=== PATIENT | female | born 1985 | race Caucasian/White ===

== ENCOUNTER 2021-05-20 09:05 | Inpatient (IN) ==
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
[2021-05-20 10:17] LABS: Basophils # (auto) 0.02 K/uL (0-0.2); Basophils % (auto) 0.3 %; Eosinophils # (auto) 0.09 K/uL (0-0.5); Eosinophils % (auto) 1.3 %; Hematocrit (blood only) 36.6 % (37-47); Hemoglobin 11.9 g/dL (12.0-16.0); Immature Granulocytes # (auto) 0.01 K/uL (0.00-0.02); Immature Granulocytes % (auto) 0.1 %; Lymphocytes # (auto) 1.71 K/uL (1.2-3.4); Lymphocytes % (auto) 24.8 %; Mean Corpuscular Hemoglobin 29.6 pg (25-34); Mean Corpuscular Hgb Conc 32.5 g/dL (32-36); Mean Platelet Volume 10.1 fL (7.4-10.4); Monocytes # (auto) 0.43 K/uL (0.11-0.59); Monocytes % (auto) 6.2 %; Neutrophils # (auto) 4.64 K/uL (1.4-6.5); Neutrophils % (auto) 67.3 %; Platelet Count 285 K/uL (130-400); RDW Coefficient of Variation 13.3 % (11.5-14.5); RDW Standard Deviation 44.1 fL (36.4-46.3); Red Blood Count 4.02 M/uL (4.2-5.4)
[2021-05-20 10:33] LABS: BUN Creatinine Ratio 31.8 (10-20); Blood Urea Nitrogen 14 mg/dl (7-18); C Reactive Protein 4.24 mg/dl (0-0.29); Calcium 8.7 mg/dl (8.5-10.1); Carbon Dioxide 22 mmol/L (21-32); Chloride 115 mmol/L (98-107); Creatinine Clr Calc Pharmacy 205.4 ml/min; Est GFR (African American) > 150.0 ml/min; Est GFR (Non-African American) 129.9 ml/min; Glucose 90 mg/dl (70-99); Potassium 3.5 mmol/L (3.5-5.1); Sodium 143 mmol/L (136-145)
--- NOTE | 2021-05-20 11:02 | XRay Report ---
XR foot RT min 3V routine HISTORY: 36 years-old Female right foot infection mid lateral bottom acute pain and swelling of the right foot COMPARISON: None TECHNIQUE: 3 views of the right foot FINDINGS: Demineralized appearance of the bones. Mild joint space narrowing of the first MTP joint. Moderate di ffuse soft tissue prominence. There is a 2.1 x 2.8 cm soft tissue ulcer of the plantar lateral midfoo t/forefoot junction. Packing material with deep tissue air is noted within this distribution. Osseous erosion with cortical destruction involves the plantar and lateral aspect of the fifth metatarsal ba se measuring up to approximately 10 mm in length. IMPRESSION: Soft tissue ulcer of the plantar and lateral forefoot/midfoot junction with acute osteomy elitis involving the adjacent base of the fifth metatarsal. ACT 112: Negative or not required by law. The above report was generated using voice recognition software. It may contain grammatical, syntax o r spelling errors. Electronically signed by: Rod Mueller M.D. 05/20/2021 11:01 AM
[2021-05-20] MEDS ORDERED: PIPERACILL/TAZOBAC CONSULT ACTIVE PRN ×2 (11:10→21:09)
[2021-05-20] MEDS ORDERED: PIPERACILLIN/TAZOBACTAM 4.5 GM/120 ML BAG IV ONE (11:10)
[2021-05-20] MEDS ORDERED: DAPTOmycin 450 MG in SYRINGE 0 ML IV ONE (11:10)
--- NOTE | 2021-05-20 12:54 | History & Physical Report ---
Date of Service May 20, 2021 Assessment & Plan (1) Acute osteomyelitis: Plan: Necrotic unstageable pressure ulcer on right foot with underlying osteomyelitis ESR 86, CRP 4.24 Consult orthopedics - discussed with Dr Gallagher No surrounding cellulitis and not septic therefore hold off further antibiotics pending surgery decision. If no surgery planned will continue daptomycin and Zosyn pending blood and wound cultures. (2) Chronic paraplegia: Plan: On no specific medication for this (3) Migraines: Plan: Continue Topamax 50mg PO HS (4) Osteoarthritis of wrists, bilateral: Plan: Meloxicam 15mg PO daily (she notably also receives steroid injections every 2 months for this) Plan: VTE Prophylaxis - deferred pending surgical decision Diet - NPO pending surgical decision Dispositon - admit to med/surg Admission and Anticipated Discharge Date Admission Date: May 20, 2021 History of Present Illness Chief Complaint: Right foot ulcer Primary Care Provider: Arabella Frost PA-C Salma Chambers is a 36 year old female with lower extremity paraplegia who presents to the ER with right foot ulcer. She reports this has been ongoing for the last month. However, since jignesh COVID-19 at the beginning of this month she had increasing problems caring for the wound it it got progressively worse with more oozing and increasing in size. Because she was on isolation she was only seen by a physician last for it and was started on doxycycline. She comes in today as the oozing has stopped but it has now become necrotic and black. She denies any fever or chills. Regarding her COVID-19 diagnosis she initially had symptoms on April 28 but diagnosed positive at [facility] on May 03. She received no medications for COVID. She reports a mild cough ongoing but otherwise asymptomatic. She denies any history of OK or strokes. She has no feeling below. Last ate waffle around 8am, orange juice a couple of minutes ago. In the ER foot XR showed underlying osteomyelitis. She was treated with Daptomycin and Zosyn and referred to medicine for admission and ongoing management of this. Allergies Allergy/AdvReac Type Severity Reaction Status Date / Time sulfamethoxazole Allergy Nausea Unverified 05/20/21 11:31 [From Bactrim] trimethoprim [From Bactrim] Allergy Nausea Unverified 05/20/21 11:31 bacitracin [From Polysporin] AdvReac Hives Unverified 05/20/21 11:31 latex AdvReac Rash Unverified 05/20/21 11:31 polymyxin B [From Polysporin] AdvReac Hives Unverified 05/20/21 11:31 Home Medications Medication Instructions Recorded Confirmed Type acetylcysteine 600 mg capsule (NAC) 600 mg PO HS 05/20/21 05/20/21 History doxycycline hyclate 100 mg tablet 100 mg PO BID 05/20/21 05/20/21 History levonorgestrel-ethinyl estradiol 1 tab PO HS 05/20/21 05/20/21 History 0.1 mg-20 mcg tablet loratadine 10 mg tablet 10 mg PO HS 05/20/21 05/20/21 History meloxicam 15 mg tablet 15 mg PO DIRECTED PRN 05/20/21 05/20/21 History rizatriptan 10 mg tablet 10 mg PO HS PRN 05/20/21 05/20/21 History topiramate 50 mg tablet 50 mg PO HS 05/20/21 05/20/21 History zinc 50 mg tablet 30 mg PO HS 05/20/21 05/20/21 History Past Med/Surg History Medical History Chronic paraplegia Migraines Osteoarthritis of wrists, bilateral Surgical History History of back surgery 1993 after sledding accident History of wisdom tooth extraction Social History Smoking Status: Never smoker Hx Alcohol Use: Yes Hx Substance Use: No Preferred Language: Mohawk Communication Ability: Effective Cafeteria Attendant Required: No Beliefs That Will Affect Care: Synagogue Synagogue Beliefs: Uatsdin Current Living Situation: Spouse Other Information That Helps Us Care for You: No Feels Safe at Home: Yes Safety Concerns: Feels Safe At This Time Assistive Devices: Walker Review of Systems Review of Systems: All systems reviewed & are unremarkable except as noted in HPI & below Physical Exam Constitutional: WD/WN, vitals as above Eyes: + anicteric sclerae; normal pupil size ENMT: external ear and nose normal, oropharynx normal Respiratory: normal respiratory effort, lungs clear to auscultation Cardiovascular: RRR, no murmur, no edema Gastrointestinal (Abdomen): Inspection/Auscultation: normal bowel sounds Percussion/Palpation: abdomen soft; abdomen nontender, no guarding and abdomen not rigid Musculoskeletal: No movement of lower extremities Skin: + eschar (necrotic right plantar foot ulcer, no purelence, no surrounding cellulitis) Neurologic: awake; + does not move all extremities (no lower extremity movement) and not confused Psychiatric: A+Ox3, euthymic affect Results & Data Results & Data ([facility]) Vital Signs (Past 12 Hours) Vital Signs Temp Pulse Pulse Resp BP BP Pulse Ox 05/20/21 12:00 89 18 145/97 H 100 05/20/21 10:28 83 18 147/96 H 100 05/20/21 09:13 36.6 C 99 H 18 153/86 H 100 Laboratory Results Abnormal lab results 05/20/21 05/20/21 05/20/21 Range/Units 10:03 10:03 10:03 RBC 4.02 L (4.2-5.4) M/uL Hgb 11.9 L (12.0-16.0) g/dL Hct 36.6 L (37-47) % ESR 86 H (0-20) mm/hr Chloride 115 H (98-107) mmol/L Creatinine 0.44 L (0.6-1.2) mg/dl BUN/Creatinine Ratio 31.8 H (10-20) C-Reactive Protein 4.24 H (0-0.29) mg/dl Diagnostic Findings XR foot RT min 3V routine HISTORY: 36 years-old Female right foot infection mid lateral bottom acute pain and swelling of the right foot COMPARISON: None TECHNIQUE: 3 views of the right foot FINDINGS: Demineralized appearance of the bones. Mild joint space narrowing of the first MTP joint. Moderate diffuse soft tissue prominence. There is a 2.1 x 2.8 cm soft tissue ulcer of the plantar lateral midfoot/forefoot junction. Packing material with deep tissue air is noted within this distribution. Osseous erosion with cortical destruction involves the plantar and lateral aspect of the fifth metatarsal base measuring up to approximately 10 mm in length. IMPRESSION: Soft tissue ulcer of the plantar and lateral forefoot/midfoot junction with acute osteomyelitis involving the adjacent base of the fifth metatarsal. Medications Administered ER Medications Given: Zosyn 4.5 g IV Daptomycin 450mg IV Code Status & VTE Plan Code Status Full VTE Prophylaxis Plan VTE Prophylaxis will be ordered: Yes PG Care Time/CCT Total # of Minutes Spent Total Time Spent with Patient: Total time spent is greater than 50% in coordination of care (as documented) at patient's floor/unit and/or counseling patient: Coding Level of Care Code 61558 Initial Inpt Care Lvl 3 Diagnoses Chronic paraplegia G82.20 Migraines G43.909 Osteoarthritis of wrists, bilateral M19.031; M19.032 Acute osteomyelitis M86.10
[2021-05-20] MEDS ORDERED: ACETAMINOPHEN 325 MG TAB PO PRN (16:36)
[2021-05-20] MEDS ORDERED: RIZATRIPTAN BENZOATE 10 MG TAB PO PRN (16:36)
[2021-05-20] MEDS ORDERED: ONDANSETRON INJ 2 MG/ML 2 ML VIAL IV PRN (16:36)
[2021-05-20] MEDS ORDERED: POLYETHYLENE (MIRALAX) 17 GM PACK PO PRN (16:36)
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
[2021-05-20] MEDS: BIRTH CONTROL PO SCH (20:40)
[2021-05-20] MEDS: MELOXICAM 7.5 MG TAB PO SCH (20:40)
[2021-05-20] MEDS: ZINC SULFATE 220 MG CAPSULE PO SCH (20:41)
[2021-05-20] MEDS: LORATADINE 10 MG TAB PO SCH (20:41)
[2021-05-20] MEDS: TOPIRAMATE 50 MG TAB PO SCH (20:41)
[2021-05-20] MEDS: PIPERACILLIN/TAZOBACTAM 4.5 GM in DEXTROSE 5% 100 ML IV SCH (22:00)
[2021-05-21] MEDS: PIPERACILLIN/TAZOBACTAM 4.5 GM in DEXTROSE 5% 100 ML IV SCH ×3 (06:41→21:56)
[2021-05-21] MEDS: DAPTOmycin 450 MG in SYRINGE 0 ML IV SCH (12:48)
--- NOTE | 2021-05-21 15:23 | Procedure Note ---
Procedure Note Date of Service May 21, 2021 Note Patient identified and procedure explained: bedside sharp debridement and irrigation of necrotic right foot wound. Written consent obtained. Time out was called prior to procedure. Myself, pt's bedside nurse and wound care nurses pres ent. Pt's also present for procedure. Wound was inspected, the superficial wound was completely necrotic with dusky necrotic wound edges at the 11, 4-6 o'clock positions. The overlying necrotic tissue was sharply debrided with 11 scalpel blade. Once the superficial layer of necrotic tissue was removed there was exposed tendon. Tendon appeared to be decent integrity and perfusion so this was not debrided or transected. Deeper tissues were then debrided at the 3,4,5,6, and 9 o'clock positions. After deep debridement there was good blood flow to the underlying tissues. Wound edges that appeared dusky at the 11 and 4- 6 o'clock positions were sharply debrided until viable tissue with good blood flow was exposed. There were no deep pockets of pus or foul smelling drainage so no additional cultures of the wound were obtained. After sharp debridement of superficial and deep tissues, the entire wound bed showed good viable tissue with good blood flow. The wound bed was then scored thoroughly with a size 5 curette. The wound bed was then irrigated with 70 mL of sterile saline. Hemostasis was achieved with direct pressure held with 4 x 4 gauze by nursing staff. Wound care nursing staff then dressed the wound. Pt tolerated the procedure well with no complications. No local anesthetic was used d/t baseline paraplegia and lack of sensation. EBL 10 mL. Coding CPT Codes Skin and Soft Tissue - Skin and Soft Tissue: 94031 Debridement, subcutaneous tissue, first 20 sq cm ([id number]) [facility] Procedure Codes (Charges) Indication for Procedure Indication for procedure: Necrotic foot wound with concomitant osteomyelitis. Skin and Soft Tissue Skin and Soft Tissue: 69091 Debridement, subcutaneous tissue, first 20 sq cm
[2021-05-21] MEDS: ADVANCED PROBIOTIC 1250 MG CAPSULE PO SCH (16:58)
--- NOTE | 2021-05-21 17:32 | Hospitalist Progress Note ---
Date of Service May 21, 2021 Assessment & Plan (1) Acute osteomyelitis: Plan: - Necrotic unstageable pressure ulcer on right foot with underlying osteomyelitis - XR - soft tissue ulcer of the plantar and lateral forefoot/midfoot junction with acute osteomyelitis involve the adjacent base of the 5th metatarsal - Wound Cx and BCx - NGTD - ESR 86, CRP 4.24 - Dapto/Zosyn for now - will discuss with ID pending Cx - suggesting IV Abx for at least 3 weeks - Consult orthopedics - S/P debridement on 05/21 -- Recommend podiatry establishment - shoe fitting/offloading approaches - ID - continue current Abx - will [place] as cx may not reveal much -- Weekly CRP; Will likely need 3 weeks IV Abx at least then conversion to orals for total 6 weeks (2) Chronic paraplegia: Plan: - On no specific medication for this (3) Migraines: Plan: - Continue Topamax 50mg PO HS (4) Osteoarthritis of wrists, bilateral: Plan: - Meloxicam 15mg PO daily - (she notably also receives steroid injections every 2 months for this) Plan: - Await Cx - will re-engage ID if unable to show growth - Case management following for IV Abx needs Admission and Anticipated Discharge Date Admission Date: May 20, 2021 Subjective Patient underwent debridement this afternoon and tolerating well. ID consultation placed and completed. She reports no pain at the wound site due to paraplegia. She reports feeling well overall, no fever/chills. She is having some loose stool which has been ongoing since having COVID. No respiratory symptoms. Review of Systems Review of Systems: All systems reviewed & are unremarkable except as noted in Subjective Physical Exam Physical Exam: PHYSICAL EXAM General Appearance: WDWN in NAD who is A&O x 3 HEENT: Head is normocephalic/atraumatic; Hearing grossly intact Neck: Supple; Trachea midline; Neg JVD Extremities: R plantar aspect wound with necrotic center but no current drainage Neurological: Speech clear Psychiatric: Appropriate mood/affect Results & Data Results & Data ([facility]) Vital Signs (Past 12 Hours) Vital Signs Temp Pulse Resp BP Pulse Ox 05/21/21 14:27 37.2 C 90 16 104/70 100 05/21/21 07:20 36.7 C 90 16 107/67 100 PG Care Time/CCT Total # of Minutes Spent Total Time Spent with Patient: Total time spent is greater than 50% in coordination of care (as documented) at patient's floor/unit and/or counseling patient: Coding Level of Care Code 45012 Subseq Hosp Care Lvl 3 Diagnoses Acute osteomyelitis M86.10 Chronic paraplegia G82.20 Migraines G43.909 Osteoarthritis of wrists, bilateral M19.031; M19.032
[2021-05-21] MEDS: LORATADINE 10 MG TAB PO SCH (20:26)
[2021-05-21] MEDS: MELOXICAM 7.5 MG TAB PO SCH (20:26)
[2021-05-21] MEDS: BIRTH CONTROL PO SCH (20:27)
[2021-05-21] MEDS: ZINC SULFATE 220 MG CAPSULE PO SCH (20:27)
[2021-05-21] MEDS: TOPIRAMATE 50 MG TAB PO SCH (20:27)
[2021-05-22] MEDS: PIPERACILLIN/TAZOBACTAM 4.5 GM in DEXTROSE 5% 100 ML IV SCH ×3 (06:32→18:08)
[2021-05-22] MEDS: ADVANCED PROBIOTIC 1250 MG CAPSULE PO SCH (07:22)
[2021-05-22] MEDS: LOPERAMIDE HCL 2 MG CAP PO PRN ×4 (11:16→21:30)
[2021-05-22] MEDS: DAPTOmycin 450 MG in SYRINGE 0 ML IV SCH (12:04)
--- NOTE | 2021-05-22 19:38 | Hospitalist Progress Note ---
Date of Service May 22, 2021 Assessment & Plan (1) Acute osteomyelitis: Plan: - Necrotic unstageable pressure ulcer on right foot with underlying osteomyelitis - XR - soft tissue ulcer of the plantar and lateral forefoot/midfoot junction with acute osteomyelitis involve the adjacent base of the 5th metatarsal - Wound Cx and BCx - NGTD - ESR 86, CRP 4.24 - Dapto/Zosyn for now - message sent to ID provider - suggesting IV Abx for at least 3 weeks - Consult orthopedics - S/P debridement on 05/21 -- Recommend podiatry establishment - shoe fitting/offloading approaches - ID - continue current Abx - awaiting response from message left -- Weekly CRP; Will likely need 3 weeks IV Abx at least then conversion to orals for total 6 weeks (2) Chronic paraplegia: Plan: - On no specific medication for this (3) Migraines: Plan: - Continue Topamax 50mg PO HS (4) Osteoarthritis of wrists, bilateral: Plan: - Meloxicam 15mg PO daily - (she notably also receives steroid injections every 2 months for this) Plan: - Awaiting ID recommendations; Awaiting home agency for wound vac/Abx - when arranged hopefully can get her home tomorrow or next day pending logistics - Case management following for IV Abx needs Admission and Anticipated Discharge Date Admission Date: May 20, 2021 Subjective Reports feeling well today. Has an irrigating wound vac placed and tolerating. Remains afebrile and vitals stable. Review of Systems Review of Systems: All systems reviewed & are unremarkable except as noted in Subjective Physical Exam Physical Exam: PHYSICAL EXAM General Appearance: WDWN in NAD who is A&O x 3 HEENT: Head is normocephalic/atraumatic; Hearing grossly intact Neck: Supple; Trachea midline; Neg JVD Extremities:Wound vac placed to R plantar aspect of foot Neurological: Speech clear Psychiatric: Appropriate mood/affect Results & Data Results & Data ([facility]) Vital Signs (Past 12 Hours) Vital Signs Temp Pulse Resp BP Pulse Ox 05/22/21 15:24 36.9 C 85 16 124/82 98 05/22/21 07:38 36.6 C 83 16 114/75 100 PG Care Time/CCT Total # of Minutes Spent Total Time Spent with Patient: Total time spent is greater than 50% in coordination of care (as documented) at patient's floor/unit and/or counseling patient: Coding Level of Care Code 38902 Subseq Hosp Care Lvl 3 Diagnoses Acute osteomyelitis M86.10 Chronic paraplegia G82.20 Migraines G43.909 Osteoarthritis of wrists, bilateral M19.031; M19.032
[2021-05-22] MEDS: BIRTH CONTROL PO SCH (21:23)
[2021-05-22] MEDS: TOPIRAMATE 50 MG TAB PO SCH (21:25)
[2021-05-22] MEDS: MELOXICAM 7.5 MG TAB PO SCH (21:25)
[2021-05-22] MEDS: LORATADINE 10 MG TAB PO SCH (21:28)
[2021-05-22] MEDS: ZINC SULFATE 220 MG CAPSULE PO SCH (21:31)
[2021-05-23] MEDS: PIPERACILLIN/TAZOBACTAM 4.5 GM in DEXTROSE 5% 100 ML IV SCH (02:07)
[2021-05-23] MEDS: LOPERAMIDE HCL 2 MG CAP PO PRN ×4 (02:07→14:40)
[2021-05-23] MEDS: ADVANCED PROBIOTIC 1250 MG CAPSULE PO SCH (08:19)
[2021-05-23] MEDS ORDERED: cefTRIAXone SODIUM 2,000 MG in DEXTROSE 5% 50 ML IV SCH (09:45)
[2021-05-23 12:09] LABS: Creatinine Clr Calc Pharmacy 122.1 ml/min; Est GFR (African American) 120.8 ml/min; Est GFR (Non-African American) 104.2 ml/min
[2021-05-23] MEDS ORDERED: DAPTOmycin 300 MG in SYRINGE 0 ML IV SCH (13:00)
--- NOTE | 2021-05-23 18:03 | Discharge Summary ---
Date of Service May 23, 2021 Admission HPI Per Admitting Provider Salma Chambers is a 36 year old female with lower extremity paraplegia who presents to the ER with right foot ulcer. She reports this has been ongoing for the last month. However, since jignesh COVID-19 at the beginning of this month she had increasing problems caring for the wound it it got progressively worse with more oozing and increasing in size. Because she was on isolation she was only seen by a physician last for it and was started on doxycycline. She comes in today as the oozing has stopped but it has now become necrotic and black. She denies any fever or chills. Regarding her COVID-19 diagnosis she initially had symptoms on April 28 but diagnosed positive at [facility] on May 03. She received no medications for COVID. She reports a mild cough ongoing but otherwise asymptomatic. She denies any history of MN or strokes. She has no feeling below. Last ate waffle around 8am, orange juice a couple of minutes ago. In the ER foot XR showed underlying osteomyelitis. She was treated with Daptomycin and Zosyn and referred to medicine for admission and ongoing management of this. Principal Diagnosis Acute 5th Metatarsal Base Osteomyelitis; Open Wound of R Plantar Foot Discharge Exam PHYSICAL EXAM General Appearance: WDWN in NAD who is A&O x 3 HEENT: Head is normocephalic/atraumatic; Hearing grossly intact Neck: Supple; Trachea midline; Neg JVD Extremities:Wound vac placed to R plantar aspect of foot Neurological: Speech clear Psychiatric: Appropriate mood/affect Discharge Data Allergies Allergy/AdvReac Type Severity Reaction Status Date / Time sulfamethoxazole Allergy Nausea Unverified 05/20/21 11:31 [From Bactrim] trimethoprim [From Bactrim] Allergy Nausea Unverified 05/20/21 11:31 bacitracin [From Polysporin] AdvReac Hives Unverified 05/20/21 11:31 latex AdvReac Rash Unverified 05/20/21 11:31 polymyxin B [From Polysporin] AdvReac Hives Unverified 05/20/21 11:31 Consultations 05/20/21 12:14 Consult Orthopedic Surgery Stat 05/20/21 12:17 ED Decision to Admit Stat 05/20/21 21:11 Consult Infectious Diseases Routine Ordered Studies Foot X-Ray 05/20/21 09:37 XR foot RT min 3V routine HISTORY: 36 years-old Female right foot infection mid lateral bottom acute pain and swelling of the right foot COMPARISON: None TECHNIQUE: 3 views of the right foot FINDINGS: Demineralized appearance of the bones. Mild joint space narrowing of the first MTP joint. Moderate diffuse soft tissue prominence. There is a 2.1 x 2.8 cm soft tissue ulcer of the plantar lateral midfoot/forefoot junction. Packing material with deep tissue air is noted within this distribution. Osseous erosion with c ortical destruction involves the plantar and lateral aspect of the fifth metatarsal base measuring up to approximately 10 mm in length. IMPRESSION: Soft tissue ulcer of the plantar and lateral forefoot/midfoot junction with acute osteomyelitis involving the adjacent base of the fifth metatarsal. ACT 112: Negative or not required by law. The above report was generated using voice recognition software. It may contain grammatical, syntax or spelling errors. Electronically signed by: Rod Mueller M.D. 05/20/2021 11:01 AM Hospital Course (1) Acute osteomyelitis: - Necrotic unstageable pressure ulcer on right foot with underlying osteomyelitis - XR - soft tissue ulcer of the plantar and lateral forefoot/midfoot junction with acute osteomyelitis involve the adjacent base of the 5th metatarsal - Wound Cx and BCx - NGTD - ESR 86, CRP 4.24 - Dapto/Zosyn while hospitalized - message sent to ID provider - suggesting IV Abx for at least 3 weeks -- After further review discussed with ID - plan for Rocephin alone for now as she has been asymptomatic -- Recommends monitoring clinical course and CRP for response - if seems to fail treatment then recommend stopping Abx x 2 weeks for a bone sample -- If good clinical response then recommend changing to Augmentin 500 mg TID starting on day 21 - Orthopedics - S/P debridement on 05/21 -- Recommend podiatry establishment - shoe fitting/offloading approaches - ID - continue current Abx - awaiting response from message left -- Weekly CRP; Will likely need 3 weeks IV Abx at least then conversion to orals for total 6 weeks (2) Chronic paraplegia: - On no specific medication for this (3) Migraines: - Continue Topamax 50mg PO HS (4) Osteoarthritis of wrists, bilateral: - Meloxicam 15mg PO daily - (she notably also receives steroid injections every 2 months for this) - Home Abx arranged; U/S guided peripheral line placed Home Health Attestation I certify that this patient is under my care and that I, or a physicians speech correction assistant working with me, had a face to-face encounter that meets the home health nheg-ca-robq encounter requirements with this patient. The encounter with the patient was in whole, or in part, for the following medical condition, which is the primary reason for home health care (list medical condition): I certify that, based on my findings, the following services are medically necessary home health services: My clinical findings support the need for the above services because: Caregiver Instruct Med Mgmt, Safety, Disease Process, Signs to Report Medication Compliance and Monitoring Effective of New Medications Medication Compliance Skilled Nsg Assessment Skilled Nsg Assessment Surgical Incision / Wound Skilled Nsg Assess and Instruct on Diet Skilled Nsg Instruction New Medications Skilled Nsg to Assess, Perform and Teach Wound Care Vital Signs Weekly Labs Further, I certify that my clinical findings support that this patient is homebound (i.e. absences from home require considerable and taxing effort and are for medical reasons or [employer] services or infrequently or of short duration when for other reasons) because: Supportive Aid - Wheelchair Certification for Home Health Services: Based on the above findings, I certify that this patient is confined to the home and needs intermittent half-way care, physical therapy and/or speech therapy or continues to need occupational therapy. The patient is under my care, and I have initiated the establishment of the plan of care. This patient will be followed by a physician who will periodically review the plan of care. Total Time Total Time Spent Total Time Spent (In Minutes): Spent greater than 30 minutes preparing patient for discharge. This includes discussion with patient/family, assessment, intervention, medication reconciliation, and coordination of care. Discharge Plan Discharge Items Patient Disposition: Home - Home Health Services Reason For Visit: ACUTE OSTEOMYELITIS Discharge Diagnosis: Acute Osteomyelitis (Bone Infection) Activity: Resume your previous activity Non-emergency contact: Primary Care Provider Call non-emergency contact if: you have any medication questions, your symptoms worsen and you have a fever Follow-up/Referrals: Arabella Frost PA-C [Primary Care Provider] - 06/05/21 8:20 am Diet: Regular Addtl Attending Provider Instructions: Acute Osteomyelitis (Bone Infection): - You were admitted for a pressure ulcer on the right foot that had some necrotic () tissue. This was debrided down to good healthy tissue. - Your X-ray does show some infection in the base of the 5th metatarsal (baby toe) - Due to the bone involvement we will treat with longer course of antibiotics -- You will be on Ceftriaxone (Rocephin) 2 gram IV daily for 3 weeks. Recommend a follow-up foot x-ray in 2 weeks which can be arranged with your family doctor. You will also need to have weekly CRP (this is a blood test to look for inflammation). If this continues to reduce that is a sign the antibiotics are working. If there is a concern for worsening findings or the CRP keeps elevating, Dr. Flores from infectious disease at [facility] recommends coming off antibiotics for two weeks and getting a bone sample to better determine antibiotics. -- After the 3 weeks of IV antibiotics. You would need to go on Augmentin (type of antibiotic) for an additional 3 weeks. Talk with your family doctor about getting this prescription. This way, just in case antibiotics need changed before then you dont molded goods spot picker an antibiotic that won't get used. We do send our discharge instructions to your doctor and they can always reach out to us if need be - Do recommend getting established with a homogenizer operator or a foot doctor to help with proper shoes/devices to help prevent further foot breakdown/blisters - You will have home nursing to assist with the wound vac and will also have IV antibiotics delivered to your house Wound Instructions: - Left Foot -- Clean with saline and cover with Aquacel AG and secure with optifoam and change every other day - Right Foot -- apply skin prep and drape to periwound; apply adaptic touch over exposed structures; apply black foam, cover with drape and apply trac pad. Pressure at - 125 mmHg. Change friday, friday, friday and as needed -- If wound vac fails remove vac dressing, irrigate with normal saline and then reapply adaptic touch into wound bed. Fill with Aqualcel AG and secure with optifoam. change outer dressings as needed - Call wound clinic for follow-up -- [phone] Home Medications: - Continue these as previously prescribed. We did not make adjustments Pending Studies at Discharge: No Stand-Alone Forms: My [facility], Smoking Cessation Medications and DC Order Prescriptions: New ceftriaxone 2 gram recon soln 2 g IV DAILY 21 Days RF: 1 Continued levonorgestrel-ethinyl estrad 0.1-20 mg-mcg tablet 1 tab PO HS RF: 0 meloxicam 15 mg tablet 15 mg PO DIRECTED PRN (Reason: Pain) RF: 0 rizatriptan 10 mg tablet 10 mg PO HS PRN (Reason: Migraine Headache) RF: 0 zinc 50 mg Tablet 30 mg PO HS RF: 0 loratadine 10 mg Tablet 10 mg PO HS RF: 0 topiramate 50 mg tablet 50 mg PO HS RF: 0 acetylcysteine [NAC] 600 mg Capsule 600 mg PO HS RF: 0 Discontinued doxycycline hyclate 100 mg tablet 100 mg PO BID RF: 0 Discharge Orders: Discharge Order (Routine); Ordered 05/23/21 Ordered By: Ashley Fragoso/Other Patient Handouts: Negative Pressure Wound Therapy Admission Data Admit Date/Time: 05/20/21 12:27 Attending Provider: Ramón Nur Admit Provider: Anton Ramirez Primary Care Provider: Arabella Frost Other Providers: Alexander Gallagher ; Anton Ramirez ; Michael Bowman ; Nimesh Benjamin ; Parveen Suarez I. ; Nicolas Crawford II ; Diane Doran ; Jose Flores ; Benigno Hanson ; [facility] Other Interventions: Discharge Summary Assessment (RN) Last Done: 05/23/21 14:23 Supervising Physician Co-Signing Physician Notes Attending note: patient seen and examined with Ashley Lauren PA-C. I agree with her discharge summary. I personally reviewed the labs and imaging findings. patient excited to be going home, CM has arranged home IV antibiotics and home wound care with wound vac - Necrotic unstageable pressure ulcer on right foot with underlying osteomyelitis s/p debridement, was treated with Daptomycin and Zosyn IV while admitted ID recommends changing to Rocephin IV x 3 months wound care at home, wound vac follow up with ID and orthopedics Coding Level of Care Code D/C DAY MANAGEMENT >30 MINS Diagnoses Acute osteomyelitis M86.10 Chronic paraplegia G82.20 Migraines G43.909 Osteoarthritis of wrists, bilateral M19.031; M19.032
--- NOTE | 2021-06-06 16:11 | Coding Query ---
CODING QUERY To promote full compliance with coding requirements relating to patient care, provider participation is requested in all cases of wood heel back liner uncertainty. Please assist us with the question(s) below: Coding Question(s): There is documentation on the Discharge Summary of, "You were admitted for a pressure ulcer on the right foot that had some necrotic () tissue", and the H&P says, "In the ER foot XR showed underlying osteomyelitis. She was treated with Daptomycin and Zosyn and referred to medicine for admission and ongoing management of this". Please specify below, in your clinical opinion, the diagnosis that was most responsible for occasioning the admission. ( x ) Both the Pressure Ulcer of the Right Foot and the Acute Right Foot Osteomyelitis are equally responsible for the admit ( ) Right Foot Osteomyelitis was most responsible for the admission ( ) Pressure Ulcer of the Right Foot was most responsible for the admission ( ) Other: Please Specify Physician's Response(s): Thank you Ale Bell Principal Diagnosis: "that condition established after study, to be chiefly responsible for occasioning the admission of the patient to the hospital for care." Co-Existing Principal Diagnosis: "when two or more diagnoses equally meet the criteria for principal diagnosis as determined by the circumstances of admission, diagnostic work up, and/or therapy provided, and the Alphabetic Index, Tabular List, or another coding guideline does not provide sequencing direction, any one of the diagnoses may be sequenced first." "When the physician has documented what appears to be a current diagnosis in the body of the record, but has not included the diagnosis in the final diagnostic statement, the physician should be asked whether the diagnosis should be added." (Source Coding Clinic 2 QTR90. p3-4) KAITLIN
== END 2021-05-23 15:13 | disposition home health service (06) | DRG 464 ==
LOC: ED 09:05 → EDINP 12:27 → SUATTDRO 12:27 → 3E 16:32

== ENCOUNTER 2022-03-04 05:27 | Inpatient (IN) ==
--- NOTE | 2022-02-27 14:49 | Anesthesiology Consultation ---
Date of Service February 27, 2022 Assessment & Plan (1) Encounter for pre-operative examination: - COVID screening: Per assessment on 02/27: No known COVID-19 positive contacts or current COVID-19 related symptoms. Travel screen negative. At surgeon discretion if preop Covid testing being done. - Check test AM DOS - Preop testing: No recent testing or preop testing received. At a nesthesiologist discretion AM DOS regarding if preop testing needs to be obtained from teeir perspective. Chart Review Chart Review: Acceptable Risk for Surgery (pending evaluation AM DOS) and Patient NOT seen in Pre Admission Testing History Surgery Operation Date: 03/04/22 07:15 Proposed Procedures p Right Foot Fifth Ray Resection - Lex Yuan MD Height/Weight Height: 5 ft 4 in Weight: 104.326 kg Allergies Allergy/AdvReac Type Severity Reaction Status Date / Time sulfamethoxazole Allergy Mild Nausea Verified 02/27/22 14:07 [From Bactrim] trimethoprim [From Bactrim] Allergy Mild Nausea Verified 02/27/22 14:07 bacitracin [From Polysporin] AdvReac Intermediate Hives Verified 02/27/22 14:07 polymyxin B [From Polysporin] AdvReac Intermediate Hives Verified 02/27/22 14:07 latex AdvReac Mild Rash Verified 02/27/22 14:07 Medications Home Medications Medication Instructions Recorded Confirmed Last Taken levonorgestrel-ethinyl estradiol 1 tab PO HS 05/20/21 02/27/22 05/19/21 0.1 mg-20 mcg tablet loratadine 10 mg tablet 10 mg PO HS 05/20/21 02/27/22 05/19/21 meloxicam 15 mg tablet 15 mg PO DAILY 05/20/21 02/27/22 Unknown rizatriptan 10 mg tablet 10 mg PO HS PRN Migraine Headache 05/20/21 02/27/22 Unknown topiramate 50 mg tablet 50 mg PO HS 05/20/21 02/27/22 05/19/21 zinc 50 mg tablet 50 mg PO Q2D 05/20/21 02/27/22 05/19/21 L.acid,gasseri,plant,rham-B.animalis-cran 1 cap PO DAILY 06/15/21 02/27/22 Unknown 5 billion cell-250mg capsule (up4 Probiotics Women's) ascorbate calcium (vitamin C) 500 500 mg PO DAILY 06/15/21 02/27/22 Unknown mg tablet calcium carbonate 600 mg calcium 600 mg PO DAILY 06/15/21 02/27/22 Unknown (1,500 mg) tablet (Calcium) magnesium 250 mg tablet 250 mg PO .every other day 06/15/21 02/27/22 Unknown vzdfaecwnoxn-Ah-nzlc-minerals 27 1 tab PO DAILY 06/15/21 02/27/22 Unknown mg-0.4 mg tablet (One Daily Women's) cephalexin 500 mg capsule 500 mg PO TID 14 days #42 caps 02/25/22 02/27/22 Unknown ciprofloxacin HCl 500 mg tablet 500 mg PO BID 14 days #28 tabs 02/25/22 02/27/22 Unknown Past Medical History Medical History Chronic paraplegia Sledding accident (1993) History of COVID-19 05/2021 > symptoms resolved Migraines Neurogenic bladder Self cath PRN Pressure ulcer Right foot (follows with wound clinic) Past Family History Family History Other No family history of adverse response to anesthesia Past Surgical History Surgical History Chalazion EXCISION History of back surgery 1993 after sledding accident > DENISE RILEY @ [facility] History of wisdom tooth extraction Social History Smoking Status: Never smoker Hx Alcohol Use: Yes alcohol intake frequency: holidays/special occasions only Hx Substance Use: No substance use type: does not use
[~2022-03-04 05:27] MED LIST: [UNRECOGNIZED DRUG - REMARK] SCH
[2022-03-04] MEDS ORDERED: LR 15ML/HR IV SCH (06:00)
[2022-03-04] MEDS ORDERED: VANCOMYCIN HCL 1,500 MG in SODIUM CHLORIDE 0.9% 500 ML IV SCH (06:00)
[2022-03-04] MEDS ORDERED: ROPIVACAINE 0.5% 5 MG/ML 30 ML VIAL ONE (06:33)
[2022-03-04] MEDS ORDERED: ATROPINE SULFATE 0.1 MG/ML 10ML SYR IV PRN (06:35)
[2022-03-04] MEDS ORDERED: HYDROmorphone INJ 1 MG/ML SYRINGE IV PRN (06:35)
[2022-03-04] MEDS ORDERED: ePHEDrine sulfate 50 MG/ML AMP IV PRN (06:35)
[2022-03-04] MEDS ORDERED: fentaNYL citrate 100 MCG/2 ML VIAL IV PRN (06:35)
[2022-03-04] MEDS ORDERED: ONDANSETRON INJ 2 MG/ML 2 ML VIAL IV PRN ×2 (06:35→10:41)
[2022-03-04] MEDS ORDERED: PROPOFOL IV EMULSION 10 MG/ML 20 ML VIAL IV ONE (06:48)
[2022-03-04] MEDS ORDERED: ONDANSETRON INJ 2 MG/ML 2 ML VIAL ONE ×2 (06:48→07:51)
[2022-03-04] MEDS ORDERED: MIDAZOLAM HCL 1 MG/ML 2ML VIAL ONE (06:48)
[2022-03-04] MEDS ORDERED: DEXAMETHASONE SOD INJ 4 MG/ML VIAL ONE (06:48)
[2022-03-04] MEDS ORDERED: fentaNYL citrate 100 MCG/2 ML VIAL ONE ×2 (06:49→09:10)
[2022-03-04] MEDS ORDERED: LIDOCAINE 2% MPF LOCAL 5 ML VIAL INFIL ONE (06:50)
--- NOTE | 2022-03-04 06:56 | History & Physical Bridge Note ---
Date of Service March 04, 2022 History & Physical Bridge Note I have examined the patient, reviewed the History & Physical and in the interval since the performance of the History & Physical I have noted the following changes of clinical significance: no changes noted
[2022-03-04] MEDS ORDERED: BUPIVACAINE 0.5 % 5 MG/1 ML MPF 30ML VIAL ONE (07:02)
[2022-03-04] MEDS ORDERED: LIDOCAINE 1% LOCAL 20 ML VIAL ONE (07:03)
[2022-03-04] MEDS ORDERED: EPINEPHrine INJ 1 MG/ML AMP ONE (07:03)
[2022-03-04] MEDS ORDERED: VANCOMYCIN HCL 1000MG/20ML VIAL ONE (07:35)
[2022-03-04] MEDS ORDERED: GENTAMICIN SULFATE 40 MG/ML 2 ML VIAL ONE (07:35)
[2022-03-04] MEDS ORDERED: PHENYLEPHRINE 100MCG/ML 5ML SYR ONE (07:58)
[2022-03-04] MEDS ORDERED: PHENYLEPHRINE HCL 10 MG/ML VIAL ONE (08:22)
--- NOTE | 2022-03-04 09:23 | Operative Report ---
Post Operative Report Pre & Post Diagnosis Operation Date: 03/04/22 07:15 Pre-Op Diagnosis: Right foot osteomyelitis fifth metatarsal Post-Op Diagnosis: Right foot osteomyelitis fifth metatarsal I identified the patient and participated in the time-out.: Yes Procedure Operation Date: 03/04/22 07:15 Actual Procedures p Right Foot Fifth Ray Resection(Right) - Lex Yuan MD Surgeon Lex Yuan MD Mat Packer Homar Bolton DO Estimated Blood Loss 5 Findings Consistent with Post-Op Diagnosis Specimens See full attending dictation Complications none Disposition Accompanied Patient To Recovery: Yes Disposition: Recovery Room Description of Procedure Patient was taken to the operating room where anesthesia was administered. Patient was prepped and draped in the usual sterile fashion. Please see attending's operative report for specifics of the procedure. I was present for the entire case from initial patient positioning through final wound closure. Assistance was provided in tissue retraction, hemostasis, and final wound closure. Patient was taken to the recovery room in satisfactory condition. I attest to the content of the Intraoperative Record and any orders documented therein. Any exceptions are noted below.
--- NOTE | 2022-03-04 09:59 | Post Operative Brief Note ---
Immediate Post Op Note v1 Date of Surgery March 04, 2022 Pre & Post Diagnosis Operation Date: 03/04/22 07:15 Pre-Op Diagnosis: Right foot osteomyelitis fifth metatarsal Post-Op Diagnosis: Right foot osteomyelitis fifth metatarsal I identified the patient and participated in the time-out.: Yes Procedure Operation Date: 03/04/22 07:15 Actual Procedures p Right Foot Fifth Ray Resection(Right) - Lex Yuan MD Surgeon Lex Yuan MD Fabrics And Material Cutter Homar Bolton DO Estimated Blood Loss 5 Findings Consistent with Post-Op Diagnosis Drains Other Anesthesia Type General Complications none Disposition Accompanied Patient To Recovery: No Disposition: Recovery Room
--- NOTE | 2022-03-04 10:22 | Fluoroscopy Report ---
FL foot RT 2V CLINICAL HISTORY: RT 5TH RESECTION COMPARISON STUDY: None. FLUOROSCOPY TIME: 2 seconds. FINDINGS: Single fluoroscopic spot image of the right foot demonstrate resection of the fifth metatar serafin/toe. IMPRESSION: Fluoroscopic assistance provided for resection of the fifth metatarsal/toe. ACT 112: Negative or not required by law. Electronically signed by: Marcelo Packer M.D. 03/04/2022 10:21 AM
[2022-03-04] MEDS ORDERED: NALOXONE HCL 0.4 MG/1 ML VIAL/CARP IV PRN (10:41)
[2022-03-04] MEDS ORDERED: MAGNESIUM HYDROXIDE SUSP 30 ML UDC PO PRN (10:41)
[2022-03-04] MEDS ORDERED: METOCLOPRAMIDE HCL INJ 5 MG/ML 2 ML VIAL IV PRN (10:41)
[2022-03-04] MEDS ORDERED: bisacodyL 10 MG SUPP PR PRN (10:41)
[2022-03-04] MEDS ORDERED: HYDROmorphone INJ 0.5 MG/0.5 ML SYR IV PRN (10:41)
[2022-03-04] MEDS ORDERED: VANCOMYCIN CONSULT ACTIVE PRN (10:41)
[2022-03-04] MEDS ORDERED: VANCOMYCIN HCL 1,750 MG in SODIUM CHLORIDE 0.9% 500 ML IV SCH (10:41)
[2022-03-04] MEDS ORDERED: SODIUM CHLORIDE 0.9% 1000ML 1,000 ML IV SCH (10:41)
[2022-03-04] MEDS ORDERED: ALUMINUM/MAGNESIUM SUSP 30 ML UDC PO PRN (10:41)
[2022-03-04] MEDS ORDERED: traMADol HCL 50 MG TABLET PO PRN (10:41)
[2022-03-04] MEDS ORDERED: NON-FORMULARY MEDICATION (Magnesium 250 mg tablet) PO SCH (10:41)
[2022-03-04] MEDS ORDERED: RIZATRIPTAN BENZOATE 10 MG TAB PO PRN (10:41)
[2022-03-04] MEDS ORDERED: oxyCODONE HCL IR 5 MG TAB (IMMEDIATE RELEASE) PO PRN (10:41)
[2022-03-04] MEDS ORDERED: NON-FORMULARY MEDICATION (Zinc 50 mg Tablet) PO SCH (10:41)
--- NOTE | 2022-03-04 12:07 | Operative Report (OR) ---
DATE OF SERVICE: 03/04/2022 PREOPERATIVE DIAGNOSIS: Right foot fifth metatarsal base osteomyelitis secondary to foot ulceration secondary to paraplegia. POSTOPERATIVE DIAGNOSIS: Right foot fifth metatarsal base osteomyelitis secondary to foot ulceration secondary to paraplegia. PROCEDURE: Right foot fifth ray resection. SURGEON: Lex Yuan MD. CORPORATE REPRESENTATIVE: Homar Bolton DO. ANESTHESIA: General. INDICATIONS FOR PROCEDURE: Salma is 36 years old. She has nearly a year long wound on the lateral plantar aspect of her right foot. She suffers from a lower thoracic paraplegia. Her wound has been refractory to nonsurgical methods of management, and she has radiographic and MRI findings consisten t with osteomyelitis. She has a positive wound culture for Pseudomonas. She was taken to the OR for a fifth ray resection, debridement, and application of wound VAC as necessary. PROCEDURE IN DETAIL: Informed consent was obtained. The patient was identified. She identified the operative site as the right foot. I marked with my initials. A preoperative surgical timeout was p erformed. A preoperative dose of IV antibiotics was given. She was taken to the operating room and positioned supine on the OR table. She was positioned slightly sitting upright due to issues with he r back. Her bony prominences were inspected and padded. A bump was placed under the right hip. A p added post was applied to the left thigh area to keep that leg from falling off the bed and padding w as placed under her heels. A calf tourniquet was applied to the right leg. The leg was prescrubbed with Betadine, prepped and draped in the usual sterile fashion. DVT prophylaxis with mechanical pio ce. Impulse foot pump. The limb was exsanguinated with the Esmarch wrapping very lightly over the foot and nothing directly over the wound. Tourniquet was inflated to 250 mmHg. A longitudinal incision was made down the shaf t of the fifth metatarsal beginning at the level of the cuboid joint and proceeding in a circumferent ial fashion at the base of the fifth toe. The bone was identified proximally and subperiosteal expos ure was performed distally and an extracapsular dissection was performed. The resection was carried proximally where the fifth tarsometatarsal joint was identified. The peroneus brevis tendon was identified and amputated proximally and resected. The base of the fif th toe was then dissected out and the toe was removed for specimen. A culture was obtained of the [facility] tarsometatarsal joint and sent for routine analysis. A bone biopsy was taken of the base of the fifth metatarsal and sent for bone culture. A swab culture was also taken of the base of the fifth m etatarsal. This was then sent for specimen with specific attention to the fifth metatarsal base to carlos rios for osteomyelitis. The bone was softened and there was some enlargement at the base. No purulen ce was identified. The distal portion of the cuboid was palpated. There was an area that the pickups could probe into. Not sure whether this was just an area that the pickups could probe into on the distal extent of the cuboid. The cuboid was also slightly prominent within the base of the wound and based upon these ndings, I went ahead and resected the base of the cuboid to the level of the fourth tarsometatarsal j oint. This was sent as a separate specimen for bone biopsy and culture. This could have been relate d to loss of bone density secondary to paraplegia. The remainder of the wound bed was completely irrigated and debrided. The flexor and extensor tendon s were amputated and allowed to retract proximally. I debride the granulation tissue in the wound be d and this created a full-thickness defect. Marginal skin was also sharply excised. Irrigation was performed with a liter of saline. The tissue region well covered the bone and nothing was exposed. The incision of surgery was closed with 3-0 nylon using near-far, far-near stitches, simple stitches and horizontal mattresses. A dressing was applied nonadherent to the surgical incision, covered with a clear Op-Site dressing and then a wound VAC was applied with a black sponge within the wound. The wound VAC deployed without incident. The remaining wound was about 3 cm in diameter and full-thickn ess down to the base of the wound. The leg was cleaned with wet and dry sponges and a bulky soft sterile dressing was applied. ABDs for padding and an Jose Alejandro wrap. She was awakened from anesthesia without difficulty and taken to the [facility] room in stable condition. Specimens were as mentioned above. Counts were correct. Blood loss w as 5 mL. At the conclusion of the operation, I spoke to the patient's , informed him of my findings and discussed postoperative plan. Started on broad-spectrum IV antibiotics covering Pseudomonas. Consu lt ID. Prepare for IV access. She has had some IV access issues, which will need to be overcome if necessary. Avoid pressure on the right foot. Job ID: [id number]
--- NOTE | 2022-03-04 12:17 | Anesthesiology Progress Note ---
Date of Service March 04, 2022 Anesthesia Post Procedure Vital Signs Vital Signs: Temp Pulse Pulse Resp BP BP Pulse Ox 03/04/22 11:45 81 16 121/82 100 03/04/22 11:11 79 16 128/85 99 03/04/22 10:40 36.7 C 84 16 128/82 100 03/04/22 10:10 80 14 147/88 H 99 03/04/22 09:35 70 12 129/92 97 03/04/22 09:55 36.4 C L 82 12 134/93 100 03/04/22 09:45 72 12 138/88 100 03/04/22 09:25 79 15 132/93 95 03/04/22 09:17 36.2 C L 78 12 141/90 H 98 03/04/22 06:22 36.9 C 94 H 22 154/98 H 100 O2 Del Method 03/04/22 11:45 Room Air 03/04/22 11:11 Room Air 03/04/22 10:40 Room Air 03/04/22 10:10 Room Air 03/04/22 09:35 Room Air 03/04/22 09:55 Room Air 03/04/22 09:45 Room Air 03/04/22 09:25 Room Air 03/04/22 09:17 Room Air 03/04/22 06:22 Room Air Transfer of Care Handoff Completed per policy Notes Mental Status: alert / awake / arousable and participated in evaluation Patient Amnestic to Procedure: Yes Nausea / Vomiting: adequately controlled Pain: adequately controlled Airway Patency, RR, SpO2: stable & adequate BP & HR: stable & adequate Hydration State: stable & adequate Anesthetic Complications: no major complications apparent and Pt Satisfied with anesthetic care
[2022-03-04 12:51] LABS: Creatinine Clr Calc Pharmacy 212.9 ml/min; Est GFR (African American) 149.4 ml/min; Est GFR (Non-African American) 128.9 ml/min
[2022-03-04] MEDS ORDERED: VANCOMYCIN HCL 1,500 MG in SODIUM CHLORIDE 0.9% 500 ML IV ONE (13:15)
--- NOTE | 2022-03-04 13:52 | Pharmacy Report ---
Pharmacy PK ABX Note - Date of Service March 04, 2022 - Assessment and Plan Assessment 36 year old F receiving vancomycin and cefepime for treatment of right foot osteomyelitis. Pertinent microbiologic data includes: right ankle culture (02/22/22) growing coagulase negative Staphylococcus (martinez-sensitive) and right foot culture (02/22/22) growing Pseudomonas aeruginosa. POD #0 s/p right foot fifth ray resection, perioperative cultures obtained. Pertinent PMH includes paraplegia. Will obtain random vanco level tomorrow morning given uncertainty in accuracy of SCr/renal function. Follow cultures, can likely de-escalate vanc omycin if no new organisms result. Day # 1 of antimicrobial therapy. Plan Vancomycin * Loading dose: 1500 mg IV x 1 in OR * Maintenance dose: 1500 mg IV every 12 hours to start now * Regimen is predicted to achieve target AUC/RUKHSANA of 400-600 mg/L.hr * Random level ordered for: 03/05/22 Cefepime * 2 g IV q8h - appropriate Pharmacy will continue to follow and will adjust dose/frequency as necessary. Thank you. Pharmacy has transitioned to AUC monitoring for vancomycin. AUC/RUKHSANA is the preferred PK/PD target and is associated with decreased risk of nephrotoxicity compared to traditional trough targets.
[2022-03-04] MEDS: CEFEPIME 2,000 MG in SYRINGE 0 ML IV SCH ×2 (14:16→21:13)
[2022-03-04] MEDS: ADVANCED PROBIOTIC 1250 MG CAPSULE PO SCH (16:00)
--- NOTE | 2022-03-04 19:08 | Progress Notes ---
DATE OF SERVICE: 03/04/2022. No problems are noted. She is afebrile. Her vital signs are stable. She is updated regarding statu s of the surgery. There is a little bit of bloody drainage from the Wound VAC. The dressing is darlene n and dry. Capillary refill less than 2 seconds. DP pulse 1+. The plan is to continue offloading p ressure. Continue IV antibiotics. We will change the Wound VAC with wound care nurse on Friday. Await ID consult. We will follow up on culture results. Job ID: [id number]
[2022-03-04] MEDS ORDERED: Nursing to Pharmacy Communication SCH (19:30)
[2022-03-04] MEDS: DOCUSATE SODIUM 100 MG CAP PO SCH ×2 (21:11→21:23)
[2022-03-04] MEDS: LORATADINE 10 MG TAB PO SCH (21:11)
[2022-03-04] MEDS: SENNA 8.6 MG TAB PO SCH ×2 (21:12→21:23)
[2022-03-04] MEDS: TOPIRAMATE 50 MG TAB PO SCH (21:12)
[2022-03-05] MEDS: VANCOMYCIN HCL 1,500 MG in SODIUM CHLORIDE 0.9% 500 ML IV SCH ×2 (03:01→14:43)
[2022-03-05] MEDS: CEFEPIME 2,000 MG in SYRINGE 0 ML IV SCH ×3 (05:46→22:55)
[2022-03-05 07:17] LABS: Hemoglobin 10.9 g/dl (12.0-16.0); Mean Corpuscular Hemoglobin 29.9 pg (25.0-34.0); Mean Corpuscular Volume 90.4 fL (80.0-100.0); Mean Platelet Volume 10.3 fL (9.4-12.3); Platelet Count 248 K/uL (130-400); RDW Coefficient of Variation 13.3 % (11.5-14.5); RDW Standard Deviation 43.9 fL (36.4-46.3); Red Blood Count 3.65 M/uL (3.93-5.22); White Blood Count 6.76 K/ul (4.8-10.8)
[2022-03-05 07:45] LABS: Anion Gap 5 (3-11); BUN Creatinine Ratio 38.6 (10-20); Blood Urea Nitrogen 17 mg/dl (6-23); Carbon Dioxide 21 mmol/L (21-32); Chloride 113 mmol/L (98-107); Creatinine Clr Calc Pharmacy 217.7 ml/min; Est GFR (African American) > 150.0 ml/min; Est GFR (Non-African American) 129.9 ml/min; Glucose 108 mg/dl (70-99(Fasting)); Potassium 3.4 mmol/L (3.5-5.1); Sodium 139 mmol/L (136-145)
[2022-03-05] MEDS: DOCUSATE SODIUM 100 MG CAP PO SCH ×2 (08:32→22:47)
[2022-03-05] MEDS: CALCIUM CARBONATE 1250MG TAB PO SCH (08:33)
[2022-03-05] MEDS: MELOXICAM 7.5 MG TAB PO SCH (08:33)
[2022-03-05] MEDS: ADVANCED PROBIOTIC 1250 MG CAPSULE PO SCH (08:33)
[2022-03-05] MEDS: CEROVITE ADV FORMULA TAB PO SCH (08:34)
--- NOTE | 2022-03-05 08:38 | Orthopedic Progress Note ---
Date of Service March 05, 2022 Assessment & Plan (1) Acute osteomyelitis of right foot: Plan: Continue with wound vac Wound vac to be changed with wound nurse on Friday Gram stain final back: no growth at 5th toe, 5th metatarsal, cuboid bone or metatarsal joint Aerobic and Anaerobic cultures pending Continue with IV antibiotics, Vanco and Cefepime I&D consulted I will discuss case with Dr. Yuan. Present on Admission?: Yes Admission and Anticipated Discharge Date Admission Date: March 04, 2022 Subjective Pt is a 36 y.o female post op day#1 s/p a right 5th ray resection with Dr. Yuan. She was seen this am approx 7:45 bedside. She was sleeping, easily aroused. She states she is doing okay. She denies any pain, fever, chills, night sweats, CP or SOB. She offers no concerns. Review of Systems Review of Systems: see HPI Physical Exam Physical Exam: General: Pt is alert and oriented x3 pleasant in good spirits Integumentary: right LE dressing in place, this was not removed. Wound vac in place with serous sanguinous drainage. toes are normal in color and temperature. Hx of paraplegia, no sensation or motor baseline Results & Data ([facility]) Vital Signs (Past 12 Hours) Vital Signs Temp Pulse Resp BP BP Pulse Ox O2 Del Method 03/05/22 07:10 37.1 C 90 16 110/72 97 Room Air 03/05/22 03:02 37.0 C 90 16 124/72 97 Room Air 03/04/22 23:27 37.3 C 93 H 14 114/73 97 Room Air Laboratory Results 03/05/22 03/05/22 03/05/22 Range/Units 06:23 06:23 06:23 WBC 6.76 (4.8-10.8) K/ul RBC 3.65 L (3.93-5.22) M/uL Hgb 10.9 L (12.0-16.0) g/dl Hct 33.0 L (34.1-44.9) % MCV 90.4 (80.0-100.0) fL MCH 29.9 (25.0-34.0) pg MCHC 33.0 (32.0-36.0) g/dL RDW Std Deviation 43.9 (36.4-46.3) fL RDW Coeff of Sendy 13.3 (11.5-14.5) % Plt Count 248 (130-400) K/uL MPV 10.3 (9.4-12.3) fL Sodium 139 (136-145) mmol/L Potassium 3.4 L (3.5-5.1) mmol/L Chloride 113 H (98-107) mmol/L Carbon Dioxide 21 (21-32) mmol/L Anion Gap 5 (3-11) BUN 17 (6-23) mg/dl Creatinine 0.44 L (0.6-1.2) mg/dl Est Cr Clr Drug Dosing 217.7 ml/min Est GFR ( Amer) > 150.0 ml/min Est GFR (Non-Af Amer) 129.9 ml/min BUN/Creatinine Ratio 38.6 H (10-20) Glucose 108 H (70-99(Fasting)) mg/dl Calcium 8.0 L (8.5-10.1) mg/dl 25-OH Vitamin D Total 25.9 L (30-100) ng/ml 03/04/22 Range/Units 11:44 WBC (4.8-10.8) K/ul RBC (3.93-5.22) M/uL Hgb (12.0-16.0) g/dl Hct (34.1-44.9) % MCV (80.0-100.0) fL MCH (25.0-34.0) pg MCHC (32.0-36.0) g/dL RDW Std Deviation (36.4-46.3) fL RDW Coeff of Sendy (11.5-14.5) % Plt Count (130-400) K/uL MPV (9.4-12.3) fL Sodium (136-145) mmol/L Potassium (3.5-5.1) mmol/L Chloride (98-107) mmol/L Carbon Dioxide (21-32) mmol/L Anion Gap (3-11) BUN (6-23) mg/dl Creatinine 0.45 L (0.6-1.2) mg/dl Est Cr Clr Drug Dosing 212.9 ml/min Est GFR ( Amer) 149.4 ml/min Est GFR (Non-Af Amer) 128.9 ml/min BUN/Creatinine Ratio (10-20) Glucose (70-99(Fasting)) mg/dl Calcium (8.5-10.1) mg/dl 25-OH Vitamin D Total (30-100) ng/ml Microbiology 03/04/22 08:00 Gram Stain - Final Toe,Right Fifth 03/04/22 Unknown Gram Stain - Final Foot,Right 03/04/22 Unknown Gram Stain - Final Toe,Right Fifth 03/04/22 Unknown Gram Stain - Final Foot,Right
[2022-03-05] MEDS ORDERED: [UNRECOGNIZED DRUG - OTHER] PO SCH (09:00)
--- NOTE | 2022-03-05 13:24 | Pharmacy Report ---
Pharmacy PK ABX Note - Date of Service March 05, 2022 - Assessment and Plan Assessment 03/05/22: * ID consulted * Renal function stable 03/04/22: * 36 year old F receiving vancomycin and cefepime for treatment of right foot osteomyelitis. * Pertinent microbiologic data includes: right ankle culture (02/22/22) growing coagulase negative Staphylococcus (martinez-sensitive) and right foot culture (02/22/22) growing Pseudomonas aeruginosa. * POD #0 s/p right foot fifth ray resection, perioperative cultures obtained. * Pertinent PMH includes paraplegia. * Will obtain random vanco level tomorrow morning given uncertainty in accuracy of SCr/renal function. Follow cultures, can likely de-escalate vancomycin if no new organisms result. Day # 2 of antimicrobial therapy. Plan Vancomycin * Current regimen: 1500 mg IV every 12 hours * Random level obtained 03/05/22 resulted as 16.4 mcg/mL. This is predicted to achieve target AUC/RUKHSANA of 400-600 mg/L.hr * Continue 1500 mg IV every 12 hours * Will repeat level in the next 48-72 hours if therapy is continued and/or change in patient clinical status Cefepime * 2 g IV q8h - appropriate Pharmacy will continue to follow and will adjust dose/frequency as necessary. Thank you. Pharmacy has transitioned to AUC monitoring for vancomycin. AUC/RUKHSANA is the preferred PK/PD target and is associated with decreased risk of nephrotoxicity compared to traditional trough targets.
[2022-03-05] MEDS: SENNA 8.6 MG TAB PO SCH (22:47)
[2022-03-05] MEDS: LORATADINE 10 MG TAB PO SCH (22:48)
[2022-03-05] MEDS: TOPIRAMATE 50 MG TAB PO SCH (22:49)
[2022-03-06] MEDS: VANCOMYCIN HCL 1,500 MG in SODIUM CHLORIDE 0.9% 500 ML IV SCH ×2 (02:52→13:22)
[2022-03-06] MEDS: CEFEPIME 2,000 MG in SYRINGE 0 ML IV SCH ×3 (05:39→22:12)
[2022-03-06] MEDS: CALCIUM CARBONATE 1250MG TAB PO SCH (07:41)
[2022-03-06] MEDS: CEROVITE ADV FORMULA TAB PO SCH (07:41)
[2022-03-06] MEDS: MELOXICAM 7.5 MG TAB PO SCH (07:41)
[2022-03-06] MEDS: ADVANCED PROBIOTIC 1250 MG CAPSULE PO SCH (07:41)
[2022-03-06] MEDS: DOCUSATE SODIUM 100 MG CAP PO SCH ×3 (07:42→20:22)
[2022-03-06 08:27] LABS: Creatinine Clr Calc Pharmacy 191.6 ml/min; Est GFR (African American) 144.3 ml/min; Est GFR (Non-African American) 124.5 ml/min; Potassium 3.6 mmol/L (3.5-5.1)
--- NOTE | 2022-03-06 08:57 | Orthopedic Progress Note ---
Date of Service March 06, 2022 Assessment & Plan (1) Acute osteomyelitis of right foot: Plan: Continue with wound vac - changed today - silver sponge, 125mmHG pressure. Will need a home vac for continued aid in healing plantar wound. Home vac order signed by Dr. Yuan. Will continue wound vac changes - -- - while she's in house. ID consult pending - had to be rescheduled due to technical difficulties. She tells me that the last time she needed IV antibiotics, they were unable to get a PICC line, she did get a midline but with transferring it broke and she ended up with a central line. We will wait for ID recommendations and will consider General surgery consult if central line needed. Gram stain final back: no growth at 5th toe, 5th metatarsal, cuboid bone or metatarsal joint Aerobic and Anaerobic cultures show in point growth, reincubating. Continue with IV antibiotics, Vanco and Cefepime I&D consulted and pending. May be out of bed, transfers Dr. Yuan present for today's visit. Will re-eval daily. She is anxious to go home but understands her need to stay for now. Will continue to follow cultures, obtain home vac approval and await ID recommendations to plan for discharge. Plan for discharge to her home with HH and outpatient appointments. Admission and Anticipated Discharge Date Admission Date: March 04, 2022 Subjective Sitting up in bed, wound vac removed by wound care nurse. No complaints of pain. Slightly tearful today due to site of right foot. No fevers or chills. Tolerating a regular diet. Physical Exam Musculoskeletal: Right foot mildly edematous. Lateral foot incisions clean, dry and intact. Cleansed with sterile saline today. Wound on bottom of foot 2.4mm x 2.4mm x 1.6mm. Mild active bleeding with removal of sponge, but controlled with pressure. Wound cleansed with saline, good healthy granulation bleeding tissue present. Wound vac replaced, DP and PT pulses 1+, no sensation to right foot. Anterior ankle wound and ankle crease with mild redness, no active drainage, dry, will be covered and padded by wound care nurse. Results & Data ([facility]) Vital Signs (Past 12 Hours) Vital Signs Temp Pulse Resp BP Pulse Ox O2 Del Method 03/06/22 07:14 36.9 C 82 16 121/78 97 Room Air 03/05/22 21:55 36.9 C 89 18 123/85 100 Room Air Laboratory Results Microbiology 03/04/22 11:42 Aerobic Blood Culture - Preliminary Blood No growth in Aerobic bottle after 24 hours. Anaerobic Blood Culture - Preliminary No growth in Anaerobic bottle after 24 hours. 03/04/22 11:32 Aerobic Blood Culture - Preliminary Blood No growth in Aerobic bottle after 24 hours. Anaerobic Blood Culture - Preliminary No growth in Anaerobic bottle after 24 hours. 03/04/22 Unknown Gram Stain - Final Foot,Right Aerobic and Anaerobic Culture - Preliminary Pin-point growth present, reincubating. 03/04/22 Unknown Gram Stain - Final Toe,Right Fifth Aerobic and Anaerobic Culture - Preliminary Pin-point growth present, reincubating. 03/04/22 Unknown Gram Stain - Final Foot,Right Aerobic and Anaerobic Culture - Preliminary Pin-point growth present, reincubating. 03/04/22 08:00 Gram Stain - Final Toe,Right Fifth Aerobic and Anaerobic Culture - Preliminary No growth to date. Lab Results 03/04/22 03/04/22 03/04/22 Range/Units 06:05 06:06 11:44 WBC (4.8-10.8) K/ul RBC (3.93-5.22) M/uL Hgb (12.0-16.0) g/dl Hct (34.1-44.9) % MCV (80.0-100.0) fL MCH (25.0-34.0) pg MCHC (32.0-36.0) g/dL RDW Std Deviation (36.4-46.3) fL RDW Coeff of Sendy (11.5-14.5) % Plt Count (130-400) K/uL MPV (9.4-12.3) fL Sodium (136-145) mmol/L Potassium (3.5-5.1) mmol/L Chloride (98-107) mmol/L Carbon Dioxide (21-32) mmol/L Anion Gap (3-11) BUN (6-23) mg/dl Creatinine 0.45 L (0.6-1.2) mg/dl Est Cr Clr Drug Dosing 212.9 ml/min Est GFR ( Amer) 149.4 ml/min Est GFR (Non-Af Amer) 128.9 ml/min BUN/Creatinine Ratio (10-20) Glucose (70-99(Fasting)) mg/dl Calcium (8.5-10.1) mg/dl 25-OH Vitamin D Total (30-100) ng/ml POC Ur Test NEG (NEG) Random Vancomycin (10-20) mcg/ml SARS-CoV-2, RNA, NAAT NEGATIVE (NEGATIVE) 03/05/22 03/05/22 03/05/22 Range/Units 06:23 06:23 06:23 WBC 6.76 (4.8-10.8) K/ul RBC 3.65 L (3.93-5.22) M/uL Hgb 10.9 L (12.0-16.0) g/dl Hct 33.0 L (34.1-44.9) % MCV 90.4 (80.0-100.0) fL MCH 29.9 (25.0-34.0) pg MCHC 33.0 (32.0-36.0) g/dL RDW Std Deviation 43.9 (36.4-46.3) fL RDW Coeff of Sendy 13.3 (11.5-14.5) % Plt Count 248 (130-400) K/uL MPV 10.3 (9.4-12.3) fL Sodium 139 (136-145) mmol/L Potassium 3.4 L (3.5-5.1) mmol/L Chloride 113 H (98-107) mmol/L Carbon Dioxide 21 (21-32) mmol/L Anion Gap 5 (3-11) BUN 17 (6-23) mg/dl Creatinine 0.44 L (0.6-1.2) mg/dl Est Cr Clr Drug Dosing 217.7 ml/min Est GFR ( Amer) > 150.0 ml/min Est GFR (Non-Af Amer) 129.9 ml/min BUN/Creatinine Ratio 38.6 H (10-20) Glucose 108 H (70-99(Fasting)) mg/dl Calcium 8.0 L (8.5-10.1) mg/dl 25-OH Vitamin D Total 25.9 L (30-100) ng/ml POC Ur Test (NEG) Random Vancomycin (10-20) mcg/ml SARS-CoV-2, RNA, NAAT (NEGATIVE) 03/05/22 03/06/22 Range/Units 09:49 07:34 WBC (4.8-10.8) K/ul RBC (3.93-5.22) M/uL Hgb (12.0-16.0) g/dl Hct (34.1-44.9) % MCV (80.0-100.0) fL MCH (25.0-34.0) pg MCHC (32.0-36.0) g/dL RDW Std Deviation (36.4-46.3) fL RDW Coeff of Sendy (11.5-14.5) % Plt Count (130-400) K/uL MPV (9.4-12.3) fL Sodium 139 (136-145) mmol/L Potassium 3.6 (3.5-5.1) mmol/L Chloride 110 H (98-107) mmol/L Carbon Dioxide 25 (21-32) mmol/L Anion Gap 4 (3-11) BUN 14 (6-23) mg/dl Creatinine 0.50 L (0.6-1.2) mg/dl Est Cr Clr Drug Dosing 191.6 ml/min Est GFR ( Amer) 144.3 ml/min Est GFR (Non-Af Amer) 124.5 ml/min BUN/Creatinine Ratio 28.0 H (10-20) Glucose 97 (70-99(Fasting)) mg/dl Calcium 8.0 L (8.5-10.1) mg/dl 25-OH Vitamin D Total (30-100) ng/ml POC Ur Test (NEG) Random Vancomycin 16.4 (10-20) mcg/ml SARS-CoV-2, RNA, NAAT (NEGATIVE)
--- NOTE | 2022-03-06 18:34 | Progress Notes ---
DATE OF SERVICE: 03/06/2022. I spoke with Dr Crawford on the phone today. Number [phone], [facility] Infectious Diseases. The y could not get the telehealth dining room tables set up attendant to work. I discussed Salma's case with him. Preoperative cu lture grew out pseudomonas from this wound. She was on Cipro and Keflex preoperatively. Three out o f the four intraoperative cultures have grown out Corynebacterium species. Blood cultures are negati ve. One of the cultures was from the cuboid bone, which was partially resected. Whether or not this was contamination or true infection is not clear. Based upon our discussion, Dr Crawford has recomme nded vancomycin or daptomycin plus cefepime 2 g q.8 hours. Length of treatment 6 weeks. CRP every 2 weeks. CBC with diff, vancomycin trough and CMP every week. Follow up in the ID clinic. Discussed with Salma and her . Continue Wound VAC. Will need to get home IV services and wo und VAC care set up. She will come into the wound care clinic once a week, hopefully. She has had a bad experience with trying to get a PICC line inserted and her midline broke. She had a central IV access before. I have consulted general surgery to explore other long-term IV access options. Blood cultures are negative. Job ID: [id number]
--- NOTE | 2022-03-06 19:57 | Surgery Consultation ---
Date of Consultation March 06, 2022 Assessment & Plan (1) Acute osteomyelitis of right foot: The patient is in need of long-term intravenous antibiotics for duration of approximately 6 weeks. As noted previously in this note the patient has a great deal of difficulty achieving sufficient intravenous access for such modalities. General surgery recommendations are as follows: Placing in a port in this patient would not be preferable as she has a foot infection, thus increasing the risk of her a port becoming infected which would necessitate its removal Placing a central line (non-tunneled line) would not be sufficient for 6-week course of antibiotics as such lines should not be left in place for this duration due to the risk of the line becoming infected Although the patient has had difficulty having the PICC line/midlines placed in the past this has not been attempted this admission. Consideration can be given to having the IV team attempt this The other option would be to place a tunneled central line which would allow sufficient intravenous access for long-term administration of IV antibiotics. Unfortunately, Dr. Schwartz, my attending general surgeon on-call this evening does not perform such a procedure. Consideration can be given to contacting vascular surgery to see if they can assist with this procedure. I have discussed the above via phone with Dr. Yuan, the attending orthopedic surgeon. Supervising Physician Co-Signing Physician Notes I personally saw and evaluated the patient with Adonay Basilio PA-C and agree with the assessment and plan. 36-year-old female with a need for IV access for prolonged antibiotics Patient with active infection, would recommend against placing a port for her antibiotics Would recommend a PICC line or tunneled catheter I personally do not place either of these and would recommend consulting vascular surgery to see if they are able to place a tunneled catheter Surgery will sign off at this time, please call with any questions or concerns History of Present Illness Reason for Consultation: Need for IV access for long-term antibiotics Attending Physician: Lex Yuan MD History of Present Illness This is a 36-year-old female who is a paraplegic. Patient notes that she suffered a wound on her right foot. She said that the wound began as a blister and subsequently the infection progressed ultimately affecting her bone requiring operative intervention. On 03/04/2022 Dr. Yuan took patient to the operating room where he performed a right foot fifth ray resection secondary to osteomyelitis of the affected area. The patient is now in need of long-term IV antibiotics and has difficulty IV access. I did discuss with Dr. Yuan and he verified the patient will need approximately 6 weeks of IV antibiotics. The patient notes that she had a similar need for intravenous antibiotics back in May 2021. She said the had a great deal of difficulty placing a PICC line but were ultimately able to get a midline in her left arm. She said that shortly after this was inserted a stopped working and as the patient is paraplegic and uses her arms for nearly all of her activities of daily living the device actually broke. Thus far this admission the patient has a great deal of difficulty achieving intravenous access. She does add that they have not attempted to place a PICC line at this time. At the time of my interview the patient was resting in bed and she was in no distress. Allergies Allergy/AdvReac Type Severity Reaction Status Date / Time sulfamethoxazole Allergy Mild Nausea Verified 03/04/22 05:53 [From Bactrim] trimethoprim [From Bactrim] Allergy Mild Nausea Verified 03/04/22 05:53 bacitracin [From Polysporin] AdvReac Intermediate Hives Verified 03/04/22 05:53 polymyxin B [From Polysporin] AdvReac Intermediate Hives Verified 03/04/22 05:53 latex AdvReac Mild Rash Verified 03/04/22 05:53 Home Medications Medication Instructions Recorded Confirmed Type levonorgestrel-ethinyl estradiol 1 tab PO HS 05/20/21 03/04/22 History 0.1 mg-20 mcg tablet loratadine 10 mg tablet 10 mg PO HS 05/20/21 03/04/22 History meloxicam 15 mg tablet 15 mg PO DAILY 05/20/21 03/04/22 History rizatriptan 10 mg tablet (Maxalt) 10 mg PO HS PRN Migraine Headache 05/20/21 03/04/22 History topiramate 50 mg tablet 50 mg PO HS 05/20/21 03/04/22 History zinc 50 mg tablet 50 mg PO Q2D 05/20/21 03/04/22 History L.acid,gasseri,plant,rham-B.animalis-cran 1 cap PO DAILY 06/15/21 03/04/22 His tory 5 billion cell-250mg capsule (up4 Probiotics Women's) calcium carbonate 600 mg calcium 600 mg PO DAILY 06/15/21 03/04/22 History (1,500 mg) tablet (Calcium) magnesium 250 mg tablet 250 mg PO .every other day 06/15/21 03/04/22 History twzpgtgattml-Wg-mnvf-minerals 27 1 tab PO DAILY 06/15/21 03/04/22 History mg-0.4 mg tablet (One Daily Women's) cephalexin 500 mg capsule 500 mg PO TID 14 days #42 caps 02/25/22 03/04/22 Rx ciprofloxacin HCl 500 mg tablet 500 mg PO BID 14 days #28 tabs 02/25/22 03/04/22 Rx Patient History Medical History Chronic paraplegia Sledding accident (1993) History of asthma A CHILD History of COVID-19 05/2021 > symptoms resolved Migraines Neurogenic bladder Self cath PRN Pressure ulcer Right foot (follows with wound clinic) Surgical History Chalazion EXCISION History of back surgery 1993 after sledding accident > [facility]ODS @ [facility] History of wisdom tooth extraction Family History Other No family history of adverse response to anesthesia Social History Smoking Status: Never smoker Second Hand Exposure: Yes ( A CHILD); Hx Alcohol Use: Yes Hx Substance Use: No Preferred Language: Tamaz[place] Communication Ability: Effective Visual Impairment: No Limitations Hearing Ability: Normal Orchestra 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 Musculoskeletal: Patient's upper extremities were examined and patient had multiple areas of ecchymosis from attempted intravenous access sites. The patient was noted to have a wound VAC on her right foot. It appeared to be functioning appropriately Results & Data ([facility]) Vital Signs (Past 12 Hours) Vital Signs Temp Pulse Resp BP Pulse Ox O2 Del Method 03/06/22 14:57 37.3 C 89 16 136/87 100 Room Air PG Care Time/CCT Total # of Minutes Spent Total Time Spent with Patient: Total time spent is greater than 50% in coordination of care (as documented) at patient's floor/unit and/or counseling patient: Coding Level of Care Code 60772 Inpt Consult Level 2 Diagnoses Acute osteomyelitis of right foot M86.171
[2022-03-06] MEDS: LORATADINE 10 MG TAB PO SCH (20:19)
[2022-03-06] MEDS: TOPIRAMATE 50 MG TAB PO SCH (20:19)
[2022-03-06] MEDS: SENNA 8.6 MG TAB PO SCH ×2 (20:19→20:21)
[2022-03-07] MEDS: VANCOMYCIN HCL 1,500 MG in SODIUM CHLORIDE 0.9% 500 ML IV SCH ×2 (02:22→14:50)
[2022-03-07] MEDS: CEFEPIME 2,000 MG in SYRINGE 0 ML IV SCH ×3 (05:11→22:27)
[2022-03-07 07:19] LABS: Creatinine Clr Calc Pharmacy 233.6 ml/min; Est GFR (African American) > 150.0 ml/min; Est GFR (Non-African American) 132.9 ml/min
[2022-03-07] MEDS: CALCIUM CARBONATE 1250MG TAB PO SCH (09:57)
[2022-03-07] MEDS: MELOXICAM 7.5 MG TAB PO SCH (09:57)
[2022-03-07] MEDS: ADVANCED PROBIOTIC 1250 MG CAPSULE PO SCH (09:57)
[2022-03-07] MEDS: CEROVITE ADV FORMULA TAB PO SCH (09:58)
[2022-03-07] MEDS: DOCUSATE SODIUM 100 MG CAP PO SCH ×2 (10:10→20:26)
--- NOTE | 2022-03-07 12:44 | Orthopedic Progress Note ---
Date of Service March 07, 2022 Assessment & Plan (1) Acute osteomyelitis of right foot: Plan: Continue with wound vac - continue wound vac changes - -- - while she's in house. Seen by general surgery now currently waiting for vascular surgery consult in regards to tunneling central line/recommendations Gram stain final back: no growth at 5th toe, 5th metatarsal, cuboid bone or metatarsal joint Continue with IV antibiotics, Vanco and Cefepime Prescriptions for Cefepime 2g and Vancomycin 1500mg placed in chart Orders for weekly CBC w/ diff, CMP, and vancomycin trough levels in chart Orders for CRP and ESR biweekly in chart May be out of bed, transfers Continue to plan for discharge to her home with HH and outpatient appointments. Admission and Anticipated Discharge Date Admission Date: March 04, 2022 Subjective Pt was seen this am approx 1100 am. She was seen bedside and chief nursing officer was present. She is in good spirits. She offers no concerns at this time. She denies any fever, chills, night sweats, nausea or vomiting. Review of Systems Review of Systems: please refer to HPI Physical Exam Physical Exam: General: Alert and oriented x3 answering questions appropriately Integumentary and Musculoskeletal: Dressing is inplace. Neg for any drainage , wound vac is in place, working, blood in canister and serosanguineous drainage seen Toes are normal in color, warm to touch skin easily pinks up w/ pressure once pressure is off. Results & Data ([facility]) Vital Signs (Past 12 Hours) Vital Signs Temp Pulse Resp BP Pulse Ox O2 Del Method 03/07/22 11:47 36.6 C 85 16 136/84 97 Room Air 03/07/22 10:18 Room Air 03/07/22 07:58 36.6 C 80 16 121/84 98 Room Air
--- NOTE | 2022-03-07 15:26 | Consultation ---
Date of Consultation March 07, 2022 Assessment & Plan (1) Poor venous access: Markham catheter was recommended. I have discussed the risks options and benefits of the procedure with the patient. The patient understands the risks options and benefits and agrees to the procedure. This will be placed tomorrow. She can be discharged anytime after placement of the Markham. Thank you very much for letting us participate in the care of this patient. History of Present Illness Reason for Consultation: Lack of venous access Attending Physician: Lex Yuan MD History of Present Illness This is a 36-year-old female who has active osteomyelitis of her right foot. She is in need of 6 weeks of antibiotic therapy. She has had multiple IVs started which have not lasted. Long-term access for the 6 weeks was recommended. She has had a Markham catheter in the past. She was trained in how to use it and care for it. We recommended we inserted a Markham catheter at this point for her IV antibiotics. Allergies Allergy/AdvReac Type Severity Reaction Status Date / Time sulfamethoxazole Allergy Mild Nausea Verified 03/04/22 05:53 [From Bactrim] trimethoprim [From Bactrim] Allergy Mild Nausea Verified 03/04/22 05:53 bacitracin [From Polysporin] AdvReac Intermediate Hives Verified 03/04/22 05:53 polymyxin B [From Polysporin] AdvReac Intermediate Hives Verified 03/04/22 05:53 latex AdvReac Mild Rash Verified 03/04/22 05:53 Home Medications Medication Instructions Recorded Confirmed Type levonorgestrel-ethinyl estradiol 1 tab PO HS 05/20/21 03/04/22 History 0.1 mg-20 mcg tablet loratadine 10 mg tablet 10 mg PO HS 05/20/21 03/04/22 History meloxicam 15 mg tablet 15 mg PO DAILY 05/20/21 03/04/22 History rizatriptan 10 mg tablet (Maxalt) 10 mg PO HS PRN Migraine Headache 05/20/21 03/04/22 History topiramate 50 mg tablet 50 mg PO HS 05/20/21 03/04/22 History zinc 50 mg tablet 50 mg PO Q2D 05/20/21 03/04/22 History L.acid,gasseri,plant,rham-B.animalis-cran 1 cap PO DAILY 06/15/21 03/04/22 History 5 billion cell-250mg capsule (up4 Probiotics Women's) calcium carbonate 600 mg calcium 600 mg PO DAILY 06/15/21 03/04/22 History (1,500 mg) tablet (Calcium) magnesium 250 mg tablet 250 mg PO .every other day 06/15/21 03/04/22 History guvwiifpxfzh-Hp-dggp-minerals 27 1 tab PO DAILY 06/15/21 03/04/22 History mg-0.4 mg tablet (One Daily Women's) cephalexin 500 mg capsule 500 mg PO TID 14 days #42 caps 02/25/22 03/04/22 Rx ciprofloxacin HCl 500 mg tablet 500 mg PO BID 14 days #28 tabs 02/25/22 03/04/22 Rx Patient History Medical History Chronic paraplegia Sledding accident (1993) History of asthma A CHILD History of COVID-19 05/2021 > symptoms resolved Migraines Neurogenic bladder Self cath PRN Pressure ulcer Right foot (follows with wound clinic) Surgical History Chalazion EXCISION History of back surgery 1993 after sledding accident > DENISE RILEY @ [facility] History of wisdom tooth extraction Family History Other No family history of adverse response to anesthesia Social History Smoking Status: Never smoker Second Hand Exposure: Yes ( A CHILD); Hx Alcohol Use: Yes Hx Substance Use: No Preferred Language: Swedish Communication Ability: Effective Visual Impairment: No Limitations Hearing Ability: Normal 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 Beliefs That Will Affect Care: None marital status: Current Living Situation: Spouse current occupational status: employed current occupation: currently on leave of absence through pcp Feels Safe at Home: Yes Safety Concerns: Feels Safe At This Time Assistive Devices: Wheelchair Review of Systems Review of Systems: All systems reviewed & are unremarkable except as noted in HPI & below Physical Exam Constitutional: WD/WN, vitals as above Respiratory: normal respiratory effort, lungs clear to auscultation Cardiovascular: RRR, no murmur, no edema Extremities: normal capillary refill Gastrointestinal (Abdomen): Inspection/Auscultation: abdomen normal to inspection; abdomen not distended Percussion/Palpation: abdomen soft; abdomen nontender Musculoskeletal: no cyanosis or clubbing, extremities motor strength 5/5 Neurologic: CN's II-XI intact bilaterally and moves all extremities Psychiatric: Orientation: alert and oriented x 3 Results & Data ([facility]) Vital Signs (Past 12 Hours) Vital Signs Temp Pulse Pulse Resp BP Pulse Ox O2 Del Method 03/07/22 15:11 37.2 C 88 16 131/85 100 Room Air 03/07/22 11:47 36.6 C 85 16 136/84 97 Room Air 03/07/22 10:18 Room Air 03/07/22 07:58 36.6 C 80 16 121/84 98 Room Air
--- NOTE | 2022-03-07 17:16 | Progress Notes ---
DATE OF SERVICE: 03/07/2022. She is resting comfortably in bed. She has been afebrile with stable vital signs. There are no alcy ges in her culture data. The pathology did show osteomyelitis of her fifth metatarsal. Plan is to h ave a Markham catheter placed tomorrow. She can then be discharged home on IV vancomycin and cefepim e. She will follow up with Infectious Disease, my office, and also have her VAC change once a week, hopefully on Fridays at the [facility]. I will be out tomorrow, but Dr. Butler will be covering. Job ID: [id number]
[2022-03-07] MEDS: SENNA 8.6 MG TAB PO SCH (20:27)
[2022-03-07] MEDS: LORATADINE 10 MG TAB PO SCH (20:27)
[2022-03-07] MEDS: TOPIRAMATE 50 MG TAB PO SCH (20:27)
[2022-03-08] MEDS: VANCOMYCIN HCL 1,500 MG in SODIUM CHLORIDE 0.9% 500 ML IV SCH (02:21)
[2022-03-08] MEDS: CEFEPIME 2,000 MG in SYRINGE 0 ML IV SCH ×2 (05:05→14:40)
--- NOTE | 2022-03-08 06:59 | History & Physical Bridge Note ---
Date of Service March 08, 2022 History & Physical Bridge Note Patient for insertion of a yeh catheter today. I have discussed the risks options and benefits of the procedure with the patient. The patient understands the risks options and benefits and agrees to the procedure. I have examined the patient, reviewed the History & Physical and in the interval since the performance of the History & Physical I have noted the following changes of clinical significance: no changes noted
[2022-03-08 07:04] LABS: Creatinine Clr Calc Pharmacy 245.6 ml/min; Est GFR (African American) > 150.0 ml/min; Est GFR (Non-African American) 135.1 ml/min
--- NOTE | 2022-03-08 08:59 | Orthopedic Progress Note ---
Date of Service March 08, 2022 Assessment & Plan (1) Acute osteomyelitis of right foot: Plan: Continue with wound vac - continue wound vac changes - -- - while she's in house. On for Markham insertion today. Gram stain final back: Corynebacterium species Continue with IV antibiotics, Vanco and Cefepime Prescriptions for Cefepime 2g and Vancomycin 1500mg written. Orders for weekly CBC w/ diff, CMP, and vancomycin trough levels in chart Orders for CRP and ESR biweekly in chart May be out of bed, transfers Plan for discharge to her home with HH and outpatient appointments today after Markham placed and antibiotics received thru it. Patient understands and agrees with plan. Admission and Anticipated Discharge Date Admission Date: March 04, 2022 Subjective Patient doing well, no complaints. She's pleasant and excited to be going home. Wound vac being changed during visit today. Physical Exam Musculoskeletal: Right foot incision intact, mild moisture, no active drainage. Wound on plantar surface clean,dry, no active bleeding. Nontender to palpation. Distal pulses 1+, foot is warm. Diminished sensation is normal. No active movement assessed due to paralysis. Results & Data ([facility]) Vital Signs (Past 12 Hours) Vital Signs Temp Pulse Pulse Resp BP Pulse Ox O2 Del Method 03/08/22 07:26 36.7 C 70 14 106/75 100 Room Air 03/07/22 21:40 37.0 C 88 16 125/84 99 Room Air Laboratory Results 03/08/22 03/08/22 Range/Units 06:00 06:00 Creatinine 0.39 L (0.6-1.2) mg/dl Est Cr Clr Drug Dosing 245.6 ml/min Est GFR ( Amer) > 150.0 ml/min Est GFR (Non-Af Amer) 135.1 ml/min Random Vancomycin 29.5 H* (10-20) mcg/ml Microbiology 03/04/22 Unknown Gram Stain - Final Foot,Right Aerobic and Anaerobic Culture - Preliminary Corynebacterium species 03/04/22 Unknown Gram Stain - Final Toe,Right Fifth Aerobic and Anaerobic Culture - Preliminary Corynebacterium species 03/04/22 Unknown Gram Stain - Final Foot,Right Aerobic and Anaerobic Culture - Preliminary Corynebacterium species 03/04/22 08:00 Gram Stain - Final Toe,Right Fifth Aerobic and Anaerobic Culture - Preliminary No growth to date.
--- NOTE | 2022-03-08 09:00 | Pharmacy Report ---
Pharmacy Vanc AUC Short Note - Date of Service March 08, 2022 - Assessment & Plan Assessment * 36 year old F receiving vancomycin and cefepime for treatment of right foot osteomyelitis. * Pertinent microbiologic data includes: right ankle culture (02/22/22) growing coagulase negative Staphylococcus (martinez-sensitive) and right foot culture (02/22/22) growing Pseudomonas aeruginosa. * S/p right foot fifth ray resection, perioperative cultures obtained - prelim positive for corynebacterium * Pertinent PMH includes paraplegia. * Planning for extended antibiotics with vanco/dapto + cefepime likely for 6 weeks Day # 6 of antimicrobial therapy. Plan Vancomycin * Random level obtained this morning was 29.5 mcg/ml - previous vancomycin dosing was given at ~0200 and completed infusion by 0500. Confirmed with RN that level was not drawn while dose was infusing. Was drawn about ~1 hr after dose given, therefore more resembling a peak level * Current vancomycin dosing of 1500 mg iv q 12 hrs is predicted to achieve an AUC/RUKHSANA >600 - therefore will scale back to 1250 mg iv q 12 hrs. This dosing is estimated to produce a trough level of ~16 mcg/ml, AUC/RUKHSANA of 520 and is associated with a 12% risk for nephrotoxicity. * Timed new dosing to start at 1800 today, therefore patient on more of a reasonable outpatient schedule of 0600 and 1800 if plans were to continue outpatient. Cefepime * 2 g IV q8h - appropriate Pharmacy will continue to follow and will adjust dose/frequency as necessary. Thank you. Pharmacy has transitioned to AUC monitoring for vancomycin. AUC/RUKHSANA is the preferred PK/PD target and is associated with decreased risk of nephrotoxicity compared to traditional trough targets.
[2022-03-08] MEDS: CALCIUM CARBONATE 1250MG TAB PO SCH (09:42)
[2022-03-08] MEDS: CEROVITE ADV FORMULA TAB PO SCH (09:42)
[2022-03-08] MEDS: ADVANCED PROBIOTIC 1250 MG CAPSULE PO SCH (09:42)
[2022-03-08] MEDS: DOCUSATE SODIUM 100 MG CAP PO SCH (09:42)
[2022-03-08] MEDS: MELOXICAM 7.5 MG TAB PO SCH (09:42)
[2022-03-08] MEDS ORDERED: LIDOCAINE 1% LOCAL 20 ML VIAL ONE (11:47)
--- NOTE | 2022-03-08 12:11 | Pre Anesthesia Assessment ---
Date of Service March 08, 2022 Pre Sedation Assessment Vital Signs Temp Pulse Pulse Resp BP BP Pulse Ox 03/08/22 11:25 36.8 C 84 18 132/82 100 03/08/22 07:26 36.7 C 70 14 106/75 100 03/07/22 21:40 37.0 C 88 16 125/84 99 03/07/22 15:11 37.2 C 88 16 131/85 100 O2 Del Method 03/08/22 11:25 Room Air 03/08/22 07:26 Room Air 03/07/22 21:40 Room Air 03/07/22 15:11 Room Air Cardiovascular RRR, no murmur, no edema Respiratory normal respiratory effort, lungs clear to auscultation Pre-Sedation Airway Assessment Smoking Status: Never smoker Hx Sleep Apnea: No Short, Thick Neck: Yes Thyromental Distance: > or= 3.5 Finger Breadths Oral Cavity: + WNL Mallampati Class: II ASA: ASA3 NPO Status Date of Last Intake of Fluids: 03/07/22 Time of Last Intake of Fluids: 22:00 Date of Last Intake of Solid Food: 03/07/22 Time of Last Intake of Solid Foods: 18:00 Procedure Planning Contraindications for Sedation: none Current Medications Reviewed: Yes Notes The planned sedation has been discussed with the patient. Informed Consent was obtained. I have identified the patient, determined the appropriateness of sedation and have assessed the patient immediately prior to the procedure. All medicine(s) and interventions are by my order.
[2022-03-08] MEDS: fentaNYL citrate 100 MCG/2 ML VIAL ONE ×4 (12:12→13:23)
[2022-03-08] MEDS ORDERED: MIDAZOLAM HCL 1 MG/ML 2ML VIAL ONE (12:19)
[2022-03-08] MEDS: MIDAZOLAM HCL 1 MG/ML 2ML VIAL ONE ×4 (12:20→13:23)
--- NOTE | 2022-03-08 12:56 | Operative Report ---
Post Operative Report Pre & Post Diagnosis Operation Date: 03/04/22 07:15 Pre-Op Diagnosis: Right foot osteomyelitis fifth metatarsal Post-Op Diagnosis: Right foot osteomyelitis fifth metatarsal Operation Date: 03/08/22 12:00 Pre-Op Diagnosis: Lack of Venous Access Post-Op Diagnosis: Lack of Venous Access I identified the patient and participated in the time-out.: Yes Procedure Operation Date: 03/04/22 07:15 Actual Procedures p Right Foot Fifth Ray Resection(Right) - Lex Yuan MD Operation Date: 03/08/22 12:00 Actual Procedures p Insertion of Markham Catheter, Left Internal Jugular Approach, Ultrasound Localization of Left Internal Jugular Vein, Fluoroscopy for Positioning, Moderate Sedation [id number](Left) - Rodrigo Duran MD Surgeon Rodrigo Duran MD Outside Machinist Apprentice none Estimated Blood Loss 10 Findings Consistent with Post-Op Diagnosis Specimens none Anesthesia Type RN Sedation Complications none Disposition Accompanied Patient To Recovery: No Disposition: Recovery Room Indications This is a 36-year-old female with osteomyelitis of her right foot. She needs 6 weeks of antibiotics. She has no venous access which we would last for the whole 6 weeks. Markham catheter was recommended. I have discussed the risks options and benefits of the procedure with the patient. The patient understands the risks options and benefits and agrees to the procedure. Description of Procedure Patient was taken to the angio suite and placed in the supine position. The left side of the neck and chest wall were prepped and draped in a sterile manner. The patient was identified and a timeout performed. Local anesthesia was then administered to the appropriate areas of the neck and chest wall. Ultrasound was then used to locate the left internal jugular vein. The vein compressed easily, had no filing defects, and was patent. The vein was then punctured under direct ultrasound imaging with the micropuncture needle. Micropuncture wire and sheath was inserted. Guidewire was then inserted and the micropuncture sheath was exchanged for the peel-away larger sheath. A guidewire was then passed centrally under fluoroscopic imaging. A stab wound was then made in the anterior chest wall and a PowerPort Markham was passed from the stab wound on the chest wall to the puncture site on the neck. History of difficulty passing the wire centrally we then passed the 035 Glidewire through the Markham and into the peel-away sheath. The wire was then passed centrally. The Markham was then inserted through the sheath to a central position over the wire in the distal superior vena cava. The peel away sheath was then removed. The wire was then removed. The catheter sat at the cavoatrial junction. The catheter was then sutured in place using nylon sutures. The puncture was then closed using a 4-0 Vicryl subcuticular suture. Dermabond was used for a dressing on the puncture site. The Markham aspirated and flushed easily and was then packed with heparin. A sterile dressing was applied to the catheter. The patient left the operation room in satisfactory condition and tolerated the procedure well. All needle and sponge counts were correct at the end of the procedure. I attest to the content of the Intraoperative Record and any orders documented therein. Any exceptions are noted below.
--- NOTE | 2022-03-08 13:00 | Post Anesthesia Assessment ---
Date of Service March 08, 2022 Post Sedation Assessment Vital Signs Temp Pulse Pulse Pulse Resp BP BP 03/08/22 12:45 90 20 148/87 H 03/08/22 12:40 90 20 146/96 H 03/08/22 12:35 91 H 20 146/82 H 03/08/22 12:30 87 20 132/84 03/08/22 12:25 87 20 138/88 03/08/22 12:20 91 H 20 138/91 03/08/22 12:15 89 20 136/78 03/08/22 12:10 88 20 142/89 H 03/08/22 11:25 36.8 C 84 18 132/82 03/08/22 07:26 36.7 C 70 14 106/75 03/07/22 21:40 37.0 C 88 16 125/84 03/07/22 15:11 37.2 C 88 16 131/85 Pulse Ox O2 Del Method O2 Flow Rate 03/08/22 12:45 100 Oxymask 4 03/08/22 12:40 100 Oxymask 4 03/08/22 12:35 100 Oxymask 4 03/08/22 12:30 96 Oxymask 4 03/08/22 12:25 100 Oxymask 4 03/08/22 12:20 100 Oxymask 4 03/08/22 12:15 100 Oxymask 4 03/08/22 12:10 100 Oxymask 4 03/08/22 11:25 100 Room Air 03/08/22 07:26 100 Room Air 03/07/22 21:40 99 Room Air 03/07/22 15:11 100 Room Air Recovery Score Activity: Moves 2 extremities Respiration: Deep Breath/Cough Circulation: +/-20% PreAnes Value Consciousness: Fully Awake Oxygen Saturation: > 92% On Room Air Post Anesthesia Score: 9 Discharge Sedation Level of Care: Fast Track Phase II Post Sedation Plan On clinical assessment, the patient appears to have tolerated the sedation without complications. Patient is recovering as anticipated. Patient will continue to be monitored by nursing and may be discharged when sedation discharge criteria are met per below protocol. Upon Completions of procedure up to 15 minutes continue every 5 minute vital signs and the P.A.R. score; then discharge to a Phase I or Fast Track to Phase II per the following guidelines: * Discharge Patient to appropriate Phase II area if PAR is 8 or greater or return to pre- procedure baseline. The post - procedure orders will be as directed. * If PAR score is less than 8 or not return to pre-procedure baseline then patient will follow Phase I monitoring till PAR is reached for Phase II. The Phase I may be done in procedure room or may call to secure a Phase I area. * If naloxone or flumazenil are used for reversal, hold in Phase I for continued monitoring from when last reversal dose was given for a minimum of 60 minutes or longer pending the nurse and/or physician discretion of patient condition before discharge to Phase II. Please call the Sedation Physician to re-evaluate and complete post-note for discharge to Phase II area. Do NOT discharge from procedure sedation or Phase 1 until post- sedation evaluation note is complete by procedure /sedation MD Sedation Discharge Instructions to be given to the patient at discharge to home.
[2022-03-08] MEDS ORDERED: VANCOMYCIN HCL 1,250 MG in SODIUM CHLORIDE 0.9% 250 ML IV SCH ×3 (14:00→18:00)
--- NOTE | 2022-03-08 17:09 | Discharge Summary ---
Date of Service March 08, 2022 Discharge Data Consultations 03/04/22 14:50 Consult Infectious Diseases Routine 03/06/22 16:07 Consult General Surgery Routine 03/07/22 07:18 Consult Vascular Surgery Routine Procedures Performed Operation Date: 03/04/22 07:15 Actual Procedures p Right Foot Fifth Ray Resection(Right) - Lxe Yuan MD Operation Date: 03/08/22 12:00 Actual Procedures p Insertion of Markham Catheter, Left Internal Jugular Approach, Ultrasound Localization of Left Internal Jugular Vein, Fluoroscopy for Positioning, M oderate Sedation [id number] (Left) - Rodrigo Duran MD Hospital Course (1) Acute osteomyelitis of right foot: Patient underwent a right foot fifth ray resection with Dr. Yuan on March 04, 2022. This was done at [facility] with general anesthesia. She tolerated the procedure well without any intraoperative or postoperative complications. Intraoperative wound VAC was placed on her right foot. Postoperatively, she was allowed out of bed for transfers. She does not ambulate due to underlying paralysis. She was given a regular diet. Wound care nurse consult was placed for care of the wound VAC. Wound VAC was changed on Friday and Friday at the bedside. It was decided that she would need home VAC and that was obtained and approved on March. She did mention that she has had previous issues with PICC lines and midlines. Due to her using her arms to transfer she did break a previous midline. She has had a central line in the past. A general surgery consult was placed for insertion of a central line. They recommended Markham line and vascular surgery consult. On Tuesday, March 08, 2022 she had a Markham insertion performed by Dr. Duran. Infectious disease consult was also placed and done via telephone with Dr. Yuan on Sunday, March 06, 2022. IV antibiotics were changed to IV cefepime 2 g every 8 hours and IV vancomycin 1500 mg every 12 hours. A random Vanco level was drawn on March 08 which was elevated and her vancomycin dosage was dropped to 1250 mg every 12 hours. Case management was involved for home health arrangements and arranging the IV antibiotics. Also with approval of the home VAC. Discharge instructions were provided. She understands and agrees with the plan. She will be discharged to her home on March 08, 2022 with her . She was discharged in stable condition. Discharge instructions were reviewed. She will have home health starting on March 09. She did receive IV cefepime and vancomycin through the Markham insertion prior to discharge. During her inpatient stay her vital signs remained stable, she tolerated a regular diet and she did not develop any pain. Her intraoperative cultures grew out corynebacterium species. She will be on IV antibiotics for 6 weeks after her surgery. She was instructed to obtain a weekly CBC, BMP and Vanco trough. Her next Vanco trough was instructed to be done on March 11, 2022. She will also get every other week a CRP and sedimentation rate. Her home medications were continued. She was instructed to be on a regular diet. She will follow-up as scheduled on March 13, 2022 for dressing change.
== END 2022-03-08 18:00 | disposition home health service (06) | DRG 478 ==
LOC: ASU 05:27 → 3E 09:32